=== PATIENT | male | born 1955 | race Hispanic/Latino ===

== ENCOUNTER 2020-03-02 16:25 | Inpatient (IN) | payer BC ==
[2020-03-02 17:13] LABS: ABG HCO3 17.2 mmol/L (20.0-26.0); ABG PCO2 25.9 mm Hg; ABG PH 7.441 pH Units (7.350-7.450); ABG PO2 65.8 mm Hg (80.0-90.0)
[2020-03-02 17:15] LABS: ABG Methemoglobin TNR % (0.0-1.5); ABG Oxygen Saturation TNR % (95.0-99.0)
--- NOTE | 2020-03-02 17:50 | Emergency Department Report ---
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 He is well-known to me and a very pleasant gentleman. He states he has no chronic medical problems. He shows me a list of his current medications that include testosterone but nothing much else of significance. He states that several days ago he started coughing up some clear material which later turned yellow. 2 days ago he had a temperature of 102. Today he became very short of breath. Does not report chest pain or leg pain. 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 He states he is never received any nebulized treatments for bronchospasm. He has no prior history of VTE or coronary artery disease. Later he does state that he has a history of a right bundle branch block. He presents to the emergency department with a pulse oximetry of 78-79 on room air. He is substantially dyspneic but able to speak in short sentences. MD Complaint: shortness of breath, cough -: days(s) Consistency: constant Context: recent URI Associated Symptoms: denies other symptoms, fever, cough Treatments Prior to Arrival: none - Related Data Home Medications Medication Instructions Recorded Confirmed Last Taken Aspirin 325 mg PO QDAY 08/11/18 08/17/18 08/11/18 Cyanocobalamin [Vitamin B-12] 1,000 mcg IM QWEEK 08/11/18 08/17/18 08/16/18 Fenofibrate 160 mg PO DAILY 08/11/18 08/17/18 08/16/18 Metaxalone [Skelaxin] 800 mg PO BID PRN 08/11/18 08/17/18 08/16/18 Multivit-Min/FA/Lycopen/Lutein 1 each PO DAILY 08/11/18 08/17/18 08/16/18 [Centrum Silver Men Tablet] Prasterone (Dhea)/Calcium Carb 1 each PO DAILY 08/11/18 08/17/18 08/16/18 [Dhea Tablet] Testosterone Cypionate 200 mg IM QMONTH 08/11/18 08/11/18 Unknown [Depo-Testosterone] Triamcinolone Aceton 0.1% (Nf) 1 applic TP BID 08/11/18 08/17/18 Unknown [Kenalog (NF)] bisacodyL [Dulcolax tab] 5 mg PO DAILY PRN 08/11/18 08/17/18 08/16/18 Cholecalciferol (Vitamin D3) 1,000 unit PO DAILY 08/14/18 08/17/18 08/17/18 [Vitamin D3] Famotidine [Acid Controller] 20 mg PO DAILY PRN 08/14/18 08/17/18 08/17/18 Krill Oil/[place]-3/Dha/Epa [[place]-3 1 each PO DAILY 08/14/18 08/17/18 08/16/18 Krill Oil Softgel] Magnesium Oxide 500 mg PO DAILY 08/14/18 08/14/18 Unknown Melatonin/Pyridoxine HCl (B6) 1 each PO QHS PRN 08/14/18 08/17/18 08/15/18 [Melatonin Tr 10 mg Tablet] Naproxen Sodium [Aleve TAB] 220 mg PO Q8H PRN 08/14/18 08/17/18 08/11/18 Potassium Gluconate 550 mg PO DAILY 08/14/18 08/17/18 08/17/18 Previous Rx's Medication Instructions Recorded Last Taken Type oxyCODONE /ACETAMINOPHEN [Percocet 2 tab PO Q4H PRN #30 tablet 08/18/18 Unknown Rx 5/325 mg] Allergies Allergy/AdvReac Type Severity Reaction Status Date / Time hydromorphone [From Dilaudid] AdvReac DIZZINESS, Verified 08/11/18 16:12 PT UNCOMFORTABLE WITH FEELING sulfamethoxazole AdvReac ABDOMINAL Verified 08/11/18 16:12 [From Bactrim] CRAMPS trimethoprim [From Bactrim] AdvReac ABDOMINAL Verified 08/11/18 16:12 CRAMPS ED Review of Systems ROS: Stated complaint: SOB Other details as noted in HPI Constitutional: fever. denies: diaphoresis Eyes: denies: eye pain, eye discharge, vision change ENT: denies: ear pain, throat pain Respiratory: cough, shortness of breath. denies: wheezing Cardiovascular: denies: chest pain, palpitations Endocrine: no symptoms reported Gastrointestinal: denies: abdominal pain, nausea, diarrhea Genitourinary: denies: urgency, dysuria Musculoskeletal: denies: back pain, joint swelling, arthralgia Skin: denies: rash, lesions Neurological: denies: headache, weakness, paresthesias Psychiatric: denies: anxiety, depression Hematological/Lymphatic: denies: easy bleeding, easy bruising ED Past Medical Hx - Past Medical History Previous Medical History?: Yes Hx Hypertension: Yes (documented in chart but patient denies diagnosis and is not on meds) Hx Heart Attack/AMI: No Hx Congestive Heart Failure: No Hx Diabetes: No Hx Liver Disease: No Hx Renal Disease: No Hx Arthritis: Yes Hx Seizures: No Hx Asthma: No Hx COPD: No Hx HIV: No - Surgical History Past Surgical History?: Yes Hx Cholecystectomy: Yes (2003) - Social History Smoking Status: Never Smoker Substance Use Type: None - Medications Home Medications: Home Medications Medication Instructions Recorded Confirmed Last Taken Type Aspirin 325 mg PO QDAY 08/11/18 08/17/18 08/11/18 History Cyanocobalamin [Vitamin B-12] 1,000 mcg IM QWEEK 08/11/18 08/17/18 08/16/18 History Fenofibrate 160 mg PO DAILY 08/11/18 08/17/18 08/16/18 History Metaxalone [Skelaxin] 800 mg PO BID PRN 08/11/18 08/17/18 08/16/18 History Multivit-Min/FA/Lycopen/Lutein 1 each PO DAILY 08/11/18 08/17/18 08/16/18 History [Centrum Silver Men Tablet] Prasterone (Dhea)/Calcium Carb 1 each PO DAILY 08/11/18 08/17/18 08/16/18 History [Dhea Tablet] Testosterone Cypionate 200 mg IM QMONTH 08/11/18 08/11/18 Unknown History [Depo-Testosterone] Triamcinolone Aceton 0.1% (Nf) 1 applic TP BID 08/11/18 08/17/18 Unknown History [Kenalog (NF)] bisacodyL [Dulcolax tab] 5 mg PO DAILY PRN 08/11/18 08/17/18 08/16/18 History Cholecalciferol (Vitamin D3) 1,000 unit PO DAILY 08/14/18 08/17/18 08/17/18 History [Vitamin D3] Famotidine [Acid Controller] 20 mg PO DAILY PRN 08/14/18 08/17/18 08/17/18 History Krill Oil/Herbster-3/Dha/Epa [[place]-3 1 each PO DAILY 08/14/18 08/17/18 08/16/18 History Krill Oil Softgel] Magnesium Oxide 500 mg PO DAILY 08/14/18 08/14/18 Unknown History Melatonin/Pyridoxine HCl (B6) 1 each PO QHS PRN 08/14/18 08/17/18 08/15/18 Histo ry [Melatonin Tr 10 mg Tablet] Naproxen Sodium [Aleve TAB] 220 mg PO Q8H PRN 08/14/18 08/17/18 08/11/18 History Potassium Gluconate 550 mg PO DAILY 08/14/18 08/17/18 08/17/18 History oxyCODONE /ACETAMINOPHEN [Percocet 2 tab PO Q4H PRN #30 tablet 08/18/18 Unknown Rx 5/325 mg] ED Physical Exam - General Limitations: No Limitations ED Course Vital Signs 03/02/20 03/02/20 03/02/20 16:42 16:45 17:22 Temperature 98.8 F Pulse Rate 91 H 83 Respiratory 19 24 20 Rate Blood Pressure 153/72 142/78 [Right] O2 Sat by Pulse 78 L 78 L 99 Oximetry 03/02/20 18:11 Temperature Pulse Rate 78 Respiratory 20 Rate Blood Pressure 132/76 [Right] O2 Sat by Pulse 98 Oximetry ED Medical Decision Making - Lab Data Result diagrams: 03/02/20 16:57 03/02/20 16:57 Laboratory Results - last 24 hr 03/02/20 16:53 ABG pH 7.441 ABG pCO2 25.9 ABG pO2 65.8 L ABG HCO3 17.2 L ABG O2 Saturation TNR ABG O2 Content 19.6 ABG Base Excess -5.0 L ABG Hemoglobin TNR ABG Carboxyhemoglobin TNR ABG Methemoglobin TNR Oxyhemoglobin TNR FiO2 0.36 Laboratory Results - last 24 hr 03/02/20 03/02/20 03/02/20 16:53 16:57 16:57 WBC 8.4 RBC 5.38 H Hgb 10.9 L Hct 34.8 L MCV 65 L MCH 20 L MCHC 31 L RDW 20.0 H Plt Count 362 Lymph % (Auto) 9.3 L Finney % (Auto) 4.7 Eos % (Auto) 2.9 Baso % (Auto) 0.3 Lymph # 9.3 H Finney # 0.4 Eos # 0.2 Baso # 0.0 Seg Neutrophils % 82.8 H Seg Neutrophils # 6.9 PT 15.7 H INR 1.23 H APTT 28.7 D-Dimer 1846 H ABG pH 7.441 ABG pCO2 25.9 ABG pO2 65.8 L ABG HCO3 17.2 L ABG O2 Saturation TNR ABG O2 Content 19.6 ABG Base Excess -5.0 L ABG Hemoglobin TNR ABG Carboxyhemoglobin TNR ABG Methemoglobin TNR Oxyhemoglobin TNR FiO2 0.36 Laboratory Results - last 24 hr 03/02/20 03/02/20 03/02/20 16:53 16:57 16:57 WBC 8.4 RBC 5.38 H Hgb 10.9 L Hct 34.8 L MCV 65 L MCH 20 L MCHC 31 L RDW 20.0 H Plt Count 362 Lymph % (Auto) 9.3 L Finney % (Auto) 4.7 Eos % (Auto) 2.9 Baso % (Auto) 0.3 Lymph # 9.3 H Finney # 0.4 Eos # 0.2 Baso # 0.0 Seg Neutrophils % 82.8 H Seg Neutrophils # 6.9 PT 15.7 H INR 1.23 H APTT 28.7 D-Dimer 1846 H ABG pH 7.441 ABG pCO2 25.9 ABG pO2 65.8 L ABG HCO3 17.2 L ABG O2 Saturation TNR ABG O2 Content 19.6 ABG Base Excess -5.0 L ABG Hemoglobin TNR ABG Carboxyhemoglobin TNR ABG Methemoglobin TNR Oxyhemoglobin TNR FiO2 0.36 Laboratory Results - last 24 hr 03/02/20 03/02/20 03/02/20 16:53 16:57 16:57 WBC 8.4 RBC 5.38 H Hgb 10.9 L Hct 34.8 L MCV 65 L MCH 20 L MCHC 31 L RDW 20.0 H Plt Count 362 Lymph % (Auto) 9.3 L Finney % (Auto) 4.7 Eos % (Auto) 2.9 Baso % (Auto) 0.3 Lymph # 9.3 H Finney # 0.4 Eos # 0.2 Baso # 0.0 Seg Neutrophils % 82.8 H Seg Neutrophils # 6.9 PT 15.7 H INR 1.23 H APTT 28.7 D-Dimer 1846 H ABG pH 7.441 ABG pCO2 25.9 ABG pO2 65.8 L ABG HCO3 17.2 L ABG O2 Saturation TNR ABG O2 Content 19.6 ABG Base Excess -5.0 L ABG Hemoglobin TNR ABG Carboxyhemoglobin TNR ABG Methemoglobin TNR Oxyhemoglobin TNR FiO2 0.36 Sodium Potassium Chloride Carbon Dioxide Anion Gap BUN Creatinine Estimated GFR BUN/Creatinine Ratio Glucose Lactic Acid Calcium Troponin T 03/02/20 03/02/20 16:57 16:57 WBC RBC Hgb Hct MCV MCH MCHC RDW Plt Count Lymph % (Auto) Finney % (Auto) Eos % (Auto) Baso % (Auto) Lymph # Finney # Eos # Baso # Seg Neutrophils % Seg Neutrophils # PT INR APTT D-Dimer ABG pH ABG pCO2 ABG pO2 ABG HCO3 ABG O2 Saturation ABG O2 Content ABG Base Excess ABG Hemoglobin ABG Carboxyhemoglobin ABG Methemoglobin Oxyhemoglobin FiO2 Sodium 135 L Potassium 4.0 Chloride 98.7 Carbon Dioxide 17 L Anion Gap 23 BUN 14 Creatinine 1.1 Estimated GFR > 60 BUN/Creatinine Ratio 13 Glucose 120 H Lactic Acid 1.20 Calcium 9.1 Troponin T < 0.010 Laboratory Results - last 24 hr 03/02/20 03/02/20 03/02/20 16:53 16:57 16:57 WBC 8.4 RBC 5.38 H Hgb 10.9 L Hct 34.8 L MCV 65 L MCH 20 L MCHC 31 L RDW 20.0 H Plt Count 362 Lymph % (Auto) 9.3 L Finney % (Auto) 4.7 Eos % (Auto) 2.9 Baso % (Auto) 0.3 Lymph # 9.3 H Finney # 0.4 Eos # 0.2 Baso # 0.0 Seg Neutrophils % 82.8 H Seg Neutrophils # 6.9 PT 15.7 H INR 1.23 H APTT 28.7 D-Dimer 1846 H ABG pH 7.441 ABG pCO2 25.9 ABG pO2 65.8 L ABG HCO3 17.2 L ABG O2 Saturation TNR ABG O2 Content 19.6 ABG Base Excess -5.0 L ABG Hemoglobin TNR ABG Carboxyhemoglobin TNR ABG Methemoglobin TNR Oxyhemoglobin TNR FiO2 0.36 Sodium Potassium Chloride Carbon Dioxide Anion Gap BUN Creatinine Estimated GFR BUN/Creatinine Ratio Glucose Lactic Acid Calcium Troponin T 03/02/20 03/02/20 16:57 16:57 WBC RBC Hgb Hct MCV MCH MCHC RDW Plt Count Lymph % (Auto) Finney % (Auto) Eos % (Auto) Baso % (Auto) Lymph # Finney # Eos # Baso # Seg Neutrophils % Seg Neutrophils # PT INR APTT D-Dimer ABG pH ABG pCO2 ABG pO2 ABG HCO3 ABG O2 Saturation ABG O2 Content ABG Base Excess ABG Hemoglobin ABG Carboxyhemoglobin ABG Methemoglobin Oxyhemoglobin FiO2 Sodium 135 L Potassium 4.0 Chloride 98.7 Carbon Dioxide 17 L Anion Gap 23 BUN 14 Creatinine 1.1 Estimated GFR > 60 BUN/Creatinine Ratio 13 Glucose 120 H Lactic Acid 1.20 Calcium 9.1 Troponin T < 0.010 - Radiology Data Radiology results: report reviewed, image reviewed interpreted by me: Chest x-ray shows bilateral infiltrates. CT of the chest seems consistent with diffuse bilateral ground glass/parenchymal infiltrates. They do appear typical for COVID infection to me. I did not see any evidence of pulmonary embolism. Radiologist interpretation is pending. Critical care attestation.: If time is entered above; I have spent that time in minutes in the direct care of this critically ill patient, excluding procedure time. ED Disposition Clinical Impression: Bilateral pneumonia Qualifiers: Pneumonia type: due to unspecified organism Lung location: unspecified part of lung Qualified Code(s): J18.9 - Pneumonia, unspecified organism Respiratory failure with hypoxia Qualifiers: Chronicity: acute Qualified Code(s): J96.01 - Acute respiratory failure with hypoxia Disposition: OP ADMIT IP TO THIS HOSP Is pt being admited?: Yes Does the pt Need Aspirin: Yes Condition: Stable Instructions: Bacterial Pneumonia (ED) Referrals: PRIMARY CARE, [Primary Care Provider] - 3-5 Days Time of Disposition: 19:26
[2020-03-02 17:54] LABS: INR 1.23 (0.87-1.13); Partial Thromboplastin Time 28.7 Sec. (24.2-36.6)
[2020-03-02 17:55] LABS: Hematocrit 34.8 % (35.5-45.6); Hemoglobin 10.9 gm/dl (11.8-15.2); Mean Corpuscular HGB Conc 31 % (32-34); Mean Corpuscular Volume 65 fl (84-94); Red Blood Count 5.38 M/mm3 (3.65-5.03)
[2020-03-02 17:56] LABS: Basophils % (Auto) 0.3 % (0.0-1.8); Eosinophils # (Auto) 0.2 K/mm3 (0.0-0.4); Eosinophils % (Auto) 2.9 % (0.0-4.3); Lymphocytes # (Auto) 9.3 K/mm3 (1.2-5.4); Lymphocytes % (Auto) 9.3 % (13.4-35.0); Mean Platelet Volume 8.5 fl (6-12); Monocytes # (Auto) 0.4 K/mm3 (0.0-0.8); Monocytes % (Auto) 4.7 % (0.0-7.3); Platelet Count 362 K/mm3 (140-440)
[2020-03-02 18:15] LABS: BUN/Creatinine Ratio 13; Blood Urea Nitrogen 14 mg/dL (9-20)
[2020-03-02 18:16] LABS: Calcium 9.1 mg/dL (8.4-10.2)
[2020-03-02] MEDS ORDERED: CEFEPIME/NS 2 GM/100 ML 2 GM/100 ML BAG IV ONE (18:26)
[2020-03-02 18:27] LABS: Bilirubin,Direct < 0.2 mg/dL (0-0.2)
[2020-03-02 18:28] LABS: Alanine Aminotransferase 17 units/L (7-56)
[2020-03-02 18:35] LABS: Creatine Kinase MB 2.8 ng/mL (0.0-4.0)
[2020-03-02 18:41] LABS: Creatine Kinase MB 2.8 ng/mL (0.0-4.0)
[2020-03-02 19:06] LABS: Albumin 3.5 g/dL (3.9-5)
--- NOTE | 2020-03-02 19:22 | Cat Scan Report ---
CT angio chest INDICATION / CLINICAL INFORMATION: MAIN: Hypoxia [id number] 100ml. TECHNIQUE: Precontrast bolus timing images were obtained followed by postcontrast axial and reformatted images. 3-plane MIP reconstructions were performed at an independent workstation by the technologist. All CT scans at this location are performed using CT dose reduction for ALARA by means of automated exposure control. COMPARISON: None available. FINDINGS: Enhancement of the pulmonary arteries is normal. No evidence of pulmonary embolus. There are bilateral multifocal groundglass opacities with basilar predilection of disease. No mediastinal adenopathy. Thoracic aorta is normal. No pericardial effusion. A small hiatal hernia is identified. Limited upper abdominal images and skeletal structures are negat uyen. IMPRESSION: 1. No evidence of pulmonary embolus. 2. Multifocal bilateral groundglass opacities. 3. Small hiatal hernia. Signer Name: Neto Ray MD Signed: 03/02/2020 7:18 PM Workstation Name: [id number]
[2020-03-02 19:28] LABS: Hemolysis Index 0
[2020-03-02] MEDS ORDERED: AZITHROMYCIN 500 MG in SODIUM CHLORIDE 0.9% 250ML 250 ML IV ONE (19:30)
[2020-03-02 21:05] LABS: C-Reactive Protein 8.4 mg/dL (0.00-1.30)
--- NOTE | 2020-03-02 22:36 | History and Physical Report ---
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 He is well-known to me and a very pleasant gentleman. He states he has no chronic medical problems. He shows me a list of his current medications that include testosterone but nothing much else of significance. He states that several days ago he started coughing up some clear material which later turned yellow. 2 days ago he had a temperature of 102. Today he became very short of breath. Does not report chest pain or leg pain. 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 He states he is never received any nebulized treatments for bronchospasm. He has no prior history of VTE or coronary artery disease. Later he does state that he has a history of a right bundle branch block. He presents to the emergency department with a pulse oximetry of 78-79 on room air. He is substantially dyspneic but able to speak in short sentences Past Medical History Previous Medical History?: Yes Hx Hypertension: Yes (documented in chart but patient denies diagnosis and is not on meds) Surgical History Past Surgical History?: Yes Hx Cholecystectomy: Yes (2003) Social History Smoking Status: Never Smoker Substance Use Type: None - Medications Home Medications: Home Medications Medication Instructions Recorded Confirmed Last Taken Type Aspirin 325 mg PO QDAY 08/11/18 08/17/18 08/11/18 History Cyanocobalamin [Vitamin B-12] 1,000 mcg IM QWEEK 08/11/18 08/17/18 08/16/18 History Fenofibrate 160 mg PO DAILY 08/11/18 08/17/18 08/16/18 History Metaxalone [Skelaxin] 800 mg PO BID PRN 08/11/18 08/17/18 08/16/18 History Multivit-Min/FA/Lycopen/Lutein 1 each PO DAILY 08/11/18 08/17/18 08/16/18 History [Centrum Silver Men Tablet] Prasterone (Dhea)/Calcium Carb 1 each PO DAILY 08/11/18 08/17/18 08/16/18 History [Dhea Tablet] Testosterone Cypionate 200 mg IM QMONTH 08/11/18 08/11/18 Unknown History [Depo-Testosterone] Triamcinolone Aceton 0.1% (Nf) 1 applic TP BID 08/11/18 08/17/18 Unknown History [Kenalog (NF)] bisacodyL [Dulcolax tab] 5 mg PO DAILY PRN 08/11/18 08/17/18 08/16/18 History Cholecalciferol (Vitamin D3) 1,000 unit PO DAILY 08/14/18 08/17/18 08/17/18 His tory [Vitamin D3] Famotidine [Acid Controller] 20 mg PO DAILY PRN 08/14/18 08/17/18 08/17/18 History Krill Oil/Elizabeth-3/Dha/Epa [Elizabeth-3 1 each PO DAILY 08/14/18 08/17/18 08/16/18 History Krill Oil Softgel] Magnesium Oxide 500 mg PO DAILY 08/14/18 08/14/18 Unknown History Melatonin/Pyridoxine HCl (B6) 1 each PO QHS PRN 08/14/18 08/17/18 08/15/18 History [Melatonin Tr 10 mg Tablet] Naproxen Sodium [Aleve TAB] 220 mg PO Q8H PRN 08/14/18 08/17/18 08/11/18 History Potassium Gluconate 550 mg PO DAILY 08/14/18 08/17/18 08/17/18 History oxyCODONE /ACETAMINOPHEN [Percocet 2 tab PO Q4H PRN #30 tablet 08/18/18 Unknown Rx 5/325 mg] Review of Systems ROS: Stated complaint: SOB Other details as noted in HPI Constitutional: fever. denies: diaphoresis Eyes: denies: eye pain, eye discharge, vision change ENT: denies: ear pain, throat pain Respiratory: cough, shortness of breath. denies: wheezing Cardiovascular: denies: chest pain, palpitations Endocrine: no symptoms reported Gastrointestinal: denies: abdominal pain, nausea, diarrhea Genitourinary: denies: urgency, dysuria Musculoskeletal: denies: back pain, joint swelling, arthralgia Skin: denies: rash, lesions Neurological: denies: headache, weakness, paresthesias Psychiatric: denies: anxiety, depression Hematological/Lymphatic: denies: easy bleeding, easy bruising Medications and Allergies Allergies Allergy/AdvReac Type Severity Reaction Status Date / Time hydromorphone [From Dilaudid] AdvReac DIZZINESS, Verified 08/11/18 16:12 PT UNCOMFORTABLE WITH FEELING sulfamethoxazole AdvReac ABDOMINAL Verified 08/11/18 16:12 [From Bactrim] CRAMPS trimethoprim [From Bactrim] AdvReac ABDOMINAL Verified 08/11/18 16:12 CRAMPS Home Medications Medication Instructions Recorded Confirmed Last Taken Type Aspirin 325 mg PO QDAY 08/11/18 03/03/20 08/11/18 History Cyanocobalamin [Vitamin B-12] 1,000 mcg IM QWEEK 08/11/18 03/03/20 08/16/18 History Fenofibrate 160 mg PO DAILY 08/11/18 03/03/20 08/16/18 History Metaxalone [Skelaxin] 800 mg PO BID PRN 08/11/18 03/03/20 08/16/18 History Multivit-Min/FA/Lycopen/Lutein 1 each PO DAILY 08/11/18 03/03/20 08/16/18 History [Centrum Silver Men Tablet] Prasterone (Dhea)/Calcium Carb 1 each PO DAILY 08/11/18 03/03/20 08/16/18 History [Dhea Tablet] Testosterone Cypionate 200 mg IM QMONTH 08/11/18 03/03/20 Unknown History [Depo-Testosterone] Triamcinolone Aceton 0.1% (Nf) 1 applic TP BID 08/11/18 03/03/20 Unknown History [Kenalog (NF)] bisacodyL [Dulcolax tab] 5 mg PO DAILY PRN 08/11/18 03/03/20 08/16/18 History Cholecalciferol (Vitamin D3) 1,000 unit PO DAILY 08/14/18 03/03/20 08/17/18 History [Vitamin D3] Famotidine [Acid Controller] 20 mg PO DAILY PRN 08/14/18 03/03/20 08/17/18 Hist ory Krill Oil/Elizabeth-3/Dha/Epa [Elizabeth-3 1 each PO DAILY 08/14/18 03/03/20 08/16/18 History Krill Oil Softgel] Magnesium Oxide 500 mg PO DAILY 08/14/18 03/03/20 Unknown History Melatonin/Pyridoxine HCl (B6) 1 each PO QHS PRN 08/14/18 03/03/20 08/15/18 History [Melatonin Tr 10 mg Tablet] Naproxen Sodium [Aleve TAB] 220 mg PO Q8H PRN 08/14/18 03/03/20 08/11/18 History Potassium Gluconate 550 mg PO DAILY 08/14/18 03/03/20 08/17/18 History oxyCODONE /ACETAMINOPHEN [Percocet 2 tab PO Q4H PRN #30 tablet 08/18/18 03/03/20 Unknown Rx 5/325 mg] Exam - Constitutional Vitals: Temp Pulse Resp BP Pulse Ox 98.5 F 81 20 147/78 94 03/02/20 21:02 03/02/20 21:02 03/02/20 21:02 03/02/20 21:02 03/02/20 21:02 General appearance: Present: no acute distress, well-nourished - EENT Eyes: Present: PERRL ENT: hearing intact, clear oral mucosa - Neck Neck: Present: supple, normal ROM - Respiratory Respiratory effort: normal Respiratory: bilateral: CTA - Cardiovascular Heart Sounds: Present: S1 & S2. Absent: rub, click - Extremities Extremities: pulses symmetrical, No edema Peripheral Pulses: within normal limits - Abdominal General gastrointestinal: Present: soft, non-tender, non-distended, normal bowel sounds Male genitourinary: Present: normal - Integumentary Integumentary: Present: clear, warm, dry - Musculoskeletal Musculoskeletal: gait normal, strength equal bilaterally - Psychiatric Psychiatric: appropriate mood/affect, intact judgment & insight - Neurologic Neurologic: CNII-XII intact, moves all extremities Results - Labs CBC & Chem 7: 03/03/20 05:18 03/03/20 05:18 Labs: Laboratory Last Values WBC 8.4 K/mm3 (4.5-11.0) 03/02/20 16:57 RBC 5.38 M/mm3 (3.65-5.03) H 03/02/20 16:57 Hgb 10.9 gm/dl (11.8-15.2) L 03/02/20 16:57 Hct 34.8 % (35.5-45.6) L 03/02/20 16:57 MCV 65 fl (84-94) L 03/02/20 16:57 MCH 20 pg (28-32) L 03/02/20 16:57 MCHC 31 % (32-34) L 03/02/20 16:57 RDW 20.0 % (13.2-15.2) H 03/02/20 16:57 Plt Count 362 K/mm3 (140-440) 03/02/20 16:57 Lymph % (Auto) 9.3 % (13.4-35.0) L 03/02/20 16:57 Lyman % (Auto) 4.7 % (0.0-7.3) 03/02/20 16:57 Eos % (Auto) 2.9 % (0.0-4.3) 03/02/20 16:57 Baso % (Auto) 0.3 % (0.0-1.8) 03/02/20 16:57 Lymph # 9.3 K/mm3 (1.2-5.4) H 03/02/20 16:57 Lyman # 0.4 K/mm3 (0.0-0.8) 03/02/20 16:57 Eos # 0.2 K/mm3 (0.0-0.4) 03/02/20 16:57 Baso # 0.0 K/mm3 (0.0-0.1) 03/02/20 16:57 Seg Neutrophils % 82.8 % (40.0-70.0) H 03/02/20 16:57 Seg Neutrophils # 6.9 K/mm3 (1.8-7.7) 03/02/20 16:57 PT 15.7 Sec. (12.2-14.9) H 03/02/20 16:57 INR 1.23 (0.87-1.13) H 03/02/20 16:57 APTT 28.7 Sec. (24.2-36.6) 03/02/20 16:57 D-Dimer 1805.97 ng/mlDDU (0-234) H 03/02/20 20:35 ABG pH 7.441 pH Units (7.350-7.450) 03/02/20 16:53 ABG pCO2 25.9 mm Hg 03/02/20 16:53 ABG pO2 65.8 mm Hg (80.0-90.0) L 03/02/20 16:53 ABG HCO3 17.2 mmol/L (20.0-26.0) L 03/02/20 16:53 ABG O2 Saturation TNR 03/02/20 16:53 ABG O2 Content 19.6 (0.0-44) 03/02/20 16:53 ABG Base Excess -5.0 mmol/L (-2.0-3.0) L 03/02/20 16:53 ABG Hemoglobin TNR 03/02/20 16:53 ABG Carboxyhemoglobin TNR 03/02/20 16:53 ABG Methemoglobin TNR 03/02/20 16:53 Oxyhemoglobin TNR 03/02/20 16:53 FiO2 0.36 % 03/02/20 16:53 Sodium 135 mmol/L (137-145) L 03/02/20 16:57 Potassium 4.0 mmol/L (3.6-5.0) 03/02/20 16:57 Chloride 98.7 mmol/L (98-107) 03/02/20 16:57 Carbon Dioxide 17 mmol/L (22-30) L 03/02/20 16:57 Anion Gap 23 mmol/L 03/02/20 16:57 BUN 14 mg/dL (9-20) 03/02/20 16:57 Creatinine 1.1 mg/dL (0.8-1.5) 03/02/20 16:57 Estimated GFR > 60 ml/min 03/02/20 16:57 BUN/Creatinine Ratio 13 % 03/02/20 16:57 Glucose 109 mg/dL (75-100) H 03/02/20 20:35 Lactic Acid 1.20 mmol/L (0.7-2.0) 03/02/20 16:57 Calcium 9.1 mg/dL (8.4-10.2) 03/02/20 16:57 Magnesium 1.90 mg/dL (1.7-2.3) 03/02/20 16:57 Transferrin 267 mg/dl (180-329) 03/02/20 16:57 Ferritin 135.5 ng/mL (13.0-400.0) 03/02/20 20:35 Total Bilirubin 0.40 mg/dL (0.1-1.2) 03/02/20 16:57 Direct Bilirubin < 0.2 mg/dL (0-0.2) 03/02/20 16:57 Indirect Bilirubin 0.2 mg/dL 03/02/20 16:57 AST 23 units/L (5-40) 03/02/20 16:57 ALT 17 units/L (7-56) 03/02/20 16:57 Alkaline Phosphatase 67 units/L (35-129) 03/02/20 16:57 Lactate Dehydrogenase 423 units/L (91-180) H 03/02/20 20:35 Total Creatine Kinase 90 units/L (55-170) 03/02/20 16:57 Total Creatine Kinase 93 units/L (55-170) 03/02/20 16:57 CK-MB (CK-2) 2.8 ng/mL (0.0-4.0) 03/02/20 16:57 CK-MB (CK-2) 2.8 ng/mL (0.0-4.0) 03/02/20 16:57 CK-MB (CK-2) Rel Index 3.0 (0-4) 03/02/20 16:57 CK-MB (CK-2) Rel Index 3.1 (0-4) 03/02/20 16:57 Troponin T < 0.010 ng/mL (0.00-0.029) 03/02/20 19:30 C-Reactive Protein 8.40 mg/dL (0.00-1.30) H 03/02/20 20:35 NT-Pro-B Natriuret Pep 193.4 pg/mL (0-900) 03/02/20 16:57 Total Protein 7.4 g/dL (6.3-8.2) 03/02/20 16:57 Albumin 3.5 g/dL (3.9-5) L 03/02/20 16:57 Albumin/Globulin Ratio 0.9 % 03/02/20 16:57 Short CBC 03/02/20 03/03/20 Range/Units 16:57 05:18 WBC 8.4 5.8 (4.5-11.0) K/mm3 Hgb 10.9 L 11.0 L (11.8-15.2) gm/dl Hct 34.8 L 34.0 L (35.5-45.6) % Plt Count 362 353 (140-440) K/mm3 BMP 03/02/20 03/02/20 03/03/20 16:57 20:35 05:18 Sodium 135 L 136 L Potassium 4.0 4.3 Chloride 98.7 99.9 Carbon Dioxide 17 L 21 L BUN 14 12 Creatinine 1.1 1.0 Glucose 120 H 109 H 97 Calcium 9.1 9.2 Cardiac Enzymes 03/02/20 03/02/20 03/02/20 Range/Units 16:57 16:57 16:57 Total Creatine Kinase 90 93 (55-170) units/L CK-MB (CK-2) 2.8 2.8 (0.0-4.0) ng/mL Troponin T < 0.010 (0.00-0.029) ng/mL 03/02/20 Range/Units 19:30 Total Creatine Kinase (55-170) units/L CK-MB (CK-2) (0.0-4.0) ng/mL Troponin T < 0.010 (0.00-0.029) ng/mL Liver Function 03/02/20 03/03/20 Range/Units 16:57 05:18 Total Bilirubin 0.40 0.40 (0.1-1.2) mg/dL Direct Bilirubin < 0.2 (0-0.2) mg/dL AST 23 23 (5-40) units/L ALT 17 15 (7-56) units/L Alkaline Phosphatase 67 64 (35-129) units/L Albumin 3.5 L 3.7 L (3.9-5) g/dL Microbiology: Microbiology 03/02/20 16:57 Peripheral/Venous Blood Culture - Preliminary Culture in Progress 03/02/20 16:57 Peripheral/Venous Blood Culture - Preliminary Culture in Progress - Imaging and Cardiology Chest x-ray: report reviewed (Bilateral pneumonia) CT scan - chest: report reviewed Imaging and Cardiology: CT CVhest IMPRESSION: 1. No evidence of pulmonary embolus. 2. Multifocal bilateral groundglass opacities. 3. Small hiatal hernia Hpoe/IV: IV Catheter Type [Right Peripheral IV Forearm] Assessment and Plan Advance Directives: Yes (Full code) VTE prophylaxis?: Chemical Plan of care discussed with patient/family: Yes - Patient Problems (1) Bilateral pneumonia Current Visit: Yes Status: Acute Qualifiers: Pneumonia type: due to unspecified organism Lung location: unspecified part of lung Qualified Code(s): J18.9 - Pneumonia, unspecified organism Plan to address problem: ossible Foley virus IV Zithromax Supplemental O2 Zinc po ID consult (2) Respiratory failure with hypoxia Current Visit: Yes Status: Acute Qualifiers: Chronicity: acute Qualified Code(s): J96.01 - Acute respiratory failure with hypoxia Plan to address problem: Resp support REsp protocol (3) Suspected 2019 novel coronavirus infection Current Visit: Yes Status: Acute Plan to address problem: Covid 19 protocol (4) D-dimer, elevated Current Visit: Yes Status: Acute Plan to address problem: On Lovenox 130 mg sq \bid (5) DVT prophylaxis Current Visit: Yes Status: Acute Plan to address problem: On Lopvenox and GI prophylaxis
[2020-03-02] MEDS ORDERED: METOCLOPRAMIDE 10 MG/2 ML INJ IV PRN (22:38)
[2020-03-02] MEDS ORDERED: ONDANSETRON 4 MG/2 ML INJ IV PRN (22:38)
[2020-03-02] MEDS ORDERED: oxyCODONE /ACETAMINOPHEN 5-325MG TAB PO PRN (22:38)
[2020-03-02] MEDS ORDERED: HYDROmorphone 1 MG/1 ML INJ IV PRN (22:38)
[2020-03-02] MEDS ORDERED: ENOXAPARIN 40 MG/0.4 ML INJ SUB-Q SCH (23:00)
[2020-03-03] MEDS: ZINC SULFATE 220 MG CAP PO SCH ×2 (00:17→09:05)
[2020-03-03] MEDS: ENOXAPARIN 150 MG/1 ML INJ SUB-Q SCH ×3 (00:17→23:40)
--- NOTE | 2020-03-03 00:45 | XRay Report ---
CHEST 1 VIEW 1728 INDICATION / CLINICAL INFORMATION: Dyspnea. COMPARISON: None available. FINDINGS: SUPPORT DEVICES: None HEART / MEDIASTINUM: No significant abnormality. LUNGS / PLEURA: Patchy moderate bilateral pulmonary infiltrates are seen, likely interstitial based o n the pattern. There may be early consolidation in the left base. No pleural effusions are seen. No p neumothorax. ADDITIONAL FINDINGS: No significant additional findings. IMPRESSION: Patchy bilateral probably interstitial infiltrates of concern for acute pneumonitis which could include viral pneumonitis. See report of subsequent CTA. Signer Name: Richard Pickering MD Signed: 03/03/2020 12:41 AM Workstation Name: [id number]
[2020-03-03 05:47] LABS: Basophils % (Auto) 0.3 % (0.0-1.8); Eosinophils # (Auto) 0.3 K/mm3 (0.0-0.4); Eosinophils % (Auto) 4.6 % (0.0-4.3); Lymphocytes # (Auto) 0.8 K/mm3 (1.2-5.4); Mean Corpuscular HGB Conc 32 % (32-34); Monocytes # (Auto) 0.4 K/mm3 (0.0-0.8); Monocytes % (Auto) 6.2 % (0.0-7.3); Platelet Count 353 K/mm3 (140-440); Red Blood Count 5.29 M/mm3 (3.65-5.03); Red Cell Distribution Width 19.7 % (13.2-15.2)
[2020-03-03 05:57] LABS: Mean Corpuscular Volume 64 fl (84-94)
[2020-03-03 06:04] LABS: Alanine Aminotransferase 15 units/L (7-56); Albumin 3.7 g/dL (3.9-5); BUN/Creatinine Ratio 12; Blood Urea Nitrogen 12 mg/dL (9-20); Calcium 9.2 mg/dL (8.4-10.2); Hemolysis Index 1
[2020-03-03] MEDS: ACETAMINOPHEN 325 MG TAB PO PRN ×2 (06:27→13:32)
[2020-03-03] MEDS: FAMOTIDINE 20 MG TAB PO SCH ×2 (09:05→21:08)
[2020-03-03] MEDS: MAGNESIUM OXIDE 400 MG TAB PO SCH (09:05)
[2020-03-03] MEDS: MULTIVITAMINS,THER W-MINERALS TAB PO SCH (09:05)
[2020-03-03] MEDS: CHOLECALCIFEROL (VIT D3) 5,000 UNIT TAB PO SCH (09:10)
[2020-03-03 09:46] LABS: Bacteria,Urine 1+ /HPF (Negative); Bilirubin,Urine NEG (Negative); Blood,Urine NEG (Negative); Color,Urine Yellow (Yellow); Mucus,Urine 2+ /HPF; Protein,Urine <15 mg/dL mg/dL (Negative)
[2020-03-03] MEDS ORDERED: LYCOPEN PO SCH (10:00)
[2020-03-03] MEDS ORDERED: CHOLECALCIFEROL 5000 UNIT PO SCH (10:00)
[2020-03-03] MEDS ORDERED: [UNRECOGNIZED DRUG - OTHER] PO SCH (10:00)
[2020-03-03] MEDS ORDERED: MULTIVIT MIN PO SCH (10:00)
[2020-03-03] MEDS ORDERED: MAGNESIUM OXIDE 500 MG PO SCH (10:00)
[2020-03-03] MEDS ORDERED: LUTEIN PO SCH (10:00)
[2020-03-03] MEDS ORDERED: AZITHROMYCIN 500 MG in SODIUM CHLORIDE 0.9% 250ML 250 ML IV SCH (10:00)
--- NOTE | 2020-03-03 13:03 | Consultation ---
History of Present Illness - Reason for Consult Consult date: 03/03/20 - History of Present Illness 64 yo M no PMHx presents to the hospital complaining of cough productive of clear-yellow sputum as well as fevers measured by him to 102. 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 He notes worsening SOB which began on the day of admission. Denies any other complaints at the present time. Febrile to 100.9 here and currently receiving ceftriaxone and azithromycin. Normal white count. Blood cultures are NGTD. Imaging personally reviewed: CT chest: multifocal GGO Review of Systems: Bold if positive, otherwise negative General: fevers, chills, rigors HEENT: visual disturbance, diplopia, eye pain Respiratory: cough, sputum, hemoptysis, shortness of breath Cardiovascular: chest pain, syncope Gastrointestinal: nausea, vomiting, diarrhea, abdominal pain Genitourinary: dysuria, hematuria, flank pain Musculoskeletal: neck pain, back pain, joint pain, edema Neurologic: headaches, seizures Hematologic: easy bruising or bleeding Endocrine: night sweats, acute weight loss Skin: rash, jaundice, redness Psychiatric: suicidal, homicidal ideation Medications and Allergies Allergies Allergy/AdvReac Type Severity Reaction Status Date / Time hydromorphone [From Dilaudid] AdvReac DIZZINESS, Verified 08/11/18 16:12 PT UNCOMFORTABLE WITH FEELING sulfamethoxazole AdvReac ABDOMINAL Verified 08/11/18 16:12 [From Bactrim] CRAMPS trimethoprim [From Bactrim] AdvReac ABDOMINAL Verified 08/11/18 16:12 CRAMPS Home Medications Medication Instructions Recorded Confirmed Last Taken Type Aspirin 325 mg PO QDAY 08/11/18 03/03/20 08/11/18 History Cyanocobalamin [Vitamin B-12] 1,000 mcg IM QWEEK 08/11/18 03/03/20 08/16/18 History Fenofibrate 160 mg PO DAILY 08/11/18 03/03/20 08/16/18 History Metaxalone [Skelaxin] 800 mg PO BID PRN 08/11/18 03/03/20 08/16/18 History Multivit-Min/FA/Lycopen/Lutein 1 each PO DAILY 08/11/18 03/03/20 08/16/18 History [Centrum Silver Men Tablet] Prasterone (Dhea)/Calcium Carb 1 each PO DAILY 08/11/18 03/03/20 08/16/18 History [Dhea Tablet] Testosterone Cypionate 200 mg IM QMONTH 08/11/18 03/03/20 Unknown History [Depo-Testosterone] Triamcinolone Aceton 0.1% (Nf) 1 applic TP BID 08/11/18 03/03/20 Unknown History [Kenalog (NF)] bisacodyL [Dulcolax tab] 5 mg PO DAILY PRN 08/11/18 03/03/20 08/16/18 History Cholecalciferol (Vitamin D3) 1,000 unit PO DAILY 08/14/18 03/03/20 08/17/18 History [Vitamin D3] Famotidine [Acid Controller] 20 mg PO DAILY PRN 08/14/18 03/03/20 08/17/18 History Krill Oil/Melfa-3/Dha/Epa [Melfa-3 1 each PO DAILY 08/14/18 03/03/20 08/16/18 History Krill Oil Softgel] Magnesium Oxide 500 mg PO DAILY 08/14/18 03/03/20 Unknown History Melatonin/Pyridoxine HCl (B6) 1 each PO QHS PRN 08/14/18 03/03/20 08/15/18 History [Melatonin Tr 10 mg Tablet] Naproxen Sodium [Aleve TAB] 220 mg PO Q8H PRN 08/14/18 03/03/20 08/11/18 History Potassium Gluconate 550 mg PO DAILY 08/14/18 03/03/20 08/17/18 History oxyCODONE /ACETAMINOPHEN [Percocet 2 tab PO Q4H PRN #30 tablet 08/18/18 03/03/20 Unknown Rx 5/325 mg] Active Meds: Active Medications Acetaminophen (Tylenol) 650 mg PO Q4H PRN PRN Reason: Pain MILD(1-3)/Fever >100.5/BRUNO Last Admin: 03/03/20 06:27 Dose: 650 mg Documented by: Azithromycin (Zithromax) 500 mg PO QDAY [facility] Stop: 03/07/20 10:01 Cholecalciferol (Vitamin D3) 5,000 unit PO DAILY [facility] Last Admin: 03/03/20 09:10 Dose: 5,000 unit Documented by: Enoxaparin Sodium (Enoxaparin) 130 mg SUB-Q Q12H [facility] Last Admin: 03/03/20 10:05 Dose: 130 mg Documented by: Famotidine (Pepcid) 20 mg PO BID [facility] Last Admin: 03/03/20 09:05 Dose: 20 mg Documented by: Hydromorphone HCl (Dilaudid) 0.5 mg IV Q3H PRN PRN Reason: Pain , Severe (7-10) Ceftriaxone Sodium (Rocephin/Ns 2 Gm/100 Ml) 2 gm in 100 mls @ 200 mls/hr IV Q24HR [facility] Magnesium Oxide (Mag-Ox) 400 mg PO QDAY [facility] Last Admin: 03/03/20 09:05 Dose: 400 mg Documented by: Metoclopramide HCl (Reglan) 10 mg IV Q6H PRN PRN Reason: Nausea And Vomiting Multivitamins/Minerals (Theragran-M Tab) 1 each PO QDAY [facility] Last Admin: 03/03/20 09:05 Dose: 1 each Documented by: Ondansetron HCl (Zofran) 4 mg IV Q8H PRN PRN Reason: Nausea And Vomiting Oxycodone/Acetaminophen (Percocet 5/325) 1 tab PO Q6H PRN PRN Reason: Pain, Moderate (4-6) Sodium Chloride (Sodium Chloride Flush Syringe 10 Ml) 10 ml IV BID [facility] Last Admin: 03/03/20 09:06 Dose: 10 ml Documented by: Sodium Chloride (Sodium Chloride Flush Syringe 10 Ml) 10 ml IV PRN PRN PRN Reason: LINE FLUSH Zinc Sulfate (Zinc Sulfate) 220 mg PO DAILY [facility] Physical Examination - Physical Exam Narrative exam: Physical exam: Reviewed in chart but deferred due to PPE conservation strategy. - Constitutional Vitals: Vital Signs Temp Pulse Resp BP Pulse Ox 100.9 F H 83 19 118/48 92 03/03/20 04:44 03/03/20 04:44 03/03/20 06:27 03/03/20 04:44 03/03/20 04:44 Temperature -Last 24 Hours Temperature 100.9 F Temperature 98.5 F Temperature 98.5 F Temperature 98.6 F Temperature 98.8 F Results - Labs CBC & Chem 7: 03/03/20 05:18 03/03/20 05:18 Labs: Abnormal lab results 03/02/20 03/02/20 03/02/20 Range/Units 16:53 16:57 16:57 RBC 5.38 H (3.65-5.03) M/mm3 Hgb 10.9 L (11.8-15.2) gm/dl Hct 34.8 L (35.5-45.6) % MCV 65 L (84-94) fl MCH 20 L (28-32) pg MCHC 31 L (32-34) % RDW 20.0 H (13.2-15.2) % Lymph % (Auto) 9.3 L (13.4-35.0) % Eos % (Auto) (0.0-4.3) % Lymph # 9.3 H (1.2-5.4) K/mm3 Seg Neutrophils % 82.8 H (40.0-70.0) % PT 15.7 H (12.2-14.9) Sec. INR 1.23 H (0.87-1.13) D-Dimer 1846 H (0-234) ng/mlDDU ABG pO2 65.8 L (80.0-90.0) mm Hg ABG HCO3 17.2 L (20.0-26.0) mmol/L ABG Base Excess -5.0 L (-2.0-3.0) mmol/L Sodium (137-145) mmol/L Carbon Dioxide (22-30) mmol/L Glucose (75-100) mg/dL Hemoglobin A1c (4-6) % Lactate Dehydrogenase (91-180) units/L C-Reactive Protein (0.00-1.30) mg/dL Albumin (3.9-5) g/dL 03/02/20 03/02/20 03/02/20 Range/Units 16:57 16:57 20:35 RBC (3.65-5.03) M/mm3 Hgb (11.8-15.2) gm/dl Hct (35.5-45.6) % MCV (84-94) fl MCH (28-32) pg MCHC (32-34) % RDW (13.2-15.2) % Lymph % (Auto) (13.4-35.0) % Eos % (Auto) (0.0-4.3) % Lymph # (1.2-5.4) K/mm3 Seg Neutrophils % (40.0-70.0) % PT (12.2-14.9) Sec. INR (0.87-1.13) D-Dimer 1805.97 H (0-234) ng/mlDDU ABG pO2 (80.0-90.0) mm Hg ABG HCO3 (20.0-26.0) mmol/L ABG Base Excess (-2.0-3.0) mmol/L Sodium 135 L (137-145) mmol/L Carbon Dioxide 17 L (22-30) mmol/L Glucose 120 H (75-100) mg/dL Hemoglobin A1c (4-6) % Lactate Dehydrogenase 411 H (91-180) units/L C-Reactive Protein 9.00 H (0.00-1.30) mg/dL Albumin 3.5 L (3.9-5) g/dL 03/02/20 03/03/20 03/03/20 Range/Units 20:35 05:18 05:18 RBC 5.29 H (3.65-5.03) M/mm3 Hgb 11.0 L (11.8-15.2) gm/dl Hct 34.0 L (35.5-45.6) % MCV 64 L (84-94) fl MCH 21 L (28-32) pg MCHC (32-34) % RDW 19.7 H (13.2-15.2) % Lymph % (Auto) (13.4-35.0) % Eos % (Auto) 4.6 H (0.0-4.3) % Lymph # 0.8 L (1.2-5.4) K/mm3 Seg Neutrophils % 74.9 H (40.0-70.0) % PT (12.2-14.9) Sec. INR (0.87-1.13) D-Dimer (0-234) ng/mlDDU ABG pO2 (80.0-90.0) mm Hg ABG HCO3 (20.0-26.0) mmol/L ABG Base Excess (-2.0-3.0) mmol/L Sodium 136 L (137-145) mmol/L Carbon Dioxide 21 L (22-30) mmol/L Glucose 109 H (75-100) mg/dL Hemoglobin A1c (4-6) % Lactate Dehydrogenase 423 H (91-180) units/L C-Reactive Protein 8.40 H (0.00-1.30) mg/dL Albumin 3.7 L (3.9-5) g/dL 03/03/20 Range/Units 05:18 RBC (3.65-5.03) M/mm3 Hgb (11.8-15.2) gm/dl Hct (35.5-45.6) % MCV (84-94) fl MCH (28-32) pg MCHC (32-34) % RDW (13.2-15.2) % Lymph % (Auto) (13.4-35.0) % Eos % (Auto) (0.0-4.3) % Lymph # (1.2-5.4) K/mm3 Seg Neutrophils % (40.0-70.0) % PT (12.2-14.9) Sec. INR (0.87-1.13) D-Dimer (0-234) ng/mlDDU ABG pO2 (80.0-90.0) mm Hg ABG HCO3 (20.0-26.0) mmol/L ABG Base Excess (-2.0-3.0) mmol/L Sodium (137-145) mmol/L Carbon Dioxide (22-30) mmol/L Glucose (75-100) mg/dL Hemoglobin A1c 6.1 H (4-6) % Lactate Dehydrogenase (91-180) units/L C-Reactive Protein (0.00-1.30) mg/dL Albumin (3.9-5) g/dL Assessment and Plan Cultures: Blood culture 03/02/2020 NGTD A/P: 64 yo M no PMHx admitted as concern for COVID #Multifocal pneumonia: most likely COVID-19, pending test. 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 Defer ion HCQ given no evidence of efficacy. Continue CTX/azithromycin for now pending confirmation. Recs: -Please collect COVID-19 test. Follow up results. -Assuming positive please follow COVID labs q48h to include LDH, CRP, ferritin, d-dimer -Further recommendations pending confirmation of test. -Normal ferritin currently, but will follow. If worsening lab values and O2 requirements will strongly consider Actemra once diagnosis confirmed. Thank you for the consult, we will continue to follow. Jorge Dennis MD [facility] M: [phone] O: [phone] F: [phone]
[2020-03-03] MEDS: cefTRIAXone/NS 2 GM/100 ML 2 GM/100 ML BAG IV SCH (13:32)
--- NOTE | 2020-03-03 15:43 | Progress Note ---
Assessment and Plan Assessment and plan: -- Suspected 2019 novel coronavirus infection Current Visit: Yes Status: Acute Covid 19 protocol, contact and droplet isolation Follow call with test, ID following --Bilateral pneumonia Current Visit: Yes Status: Acute Oxygen titrate O2 sats to more than 90% IV Zithromax, Rocephin Follow cultures, ID following -- Respiratory failure with hypoxia Current Visit: Yes Status: Acute Oxygen titrate O2 sats to more than 90% IV antibiotics, supportive care --D-dimer, elevated Current Visit: Yes Status: Acute CTA negative for PE, DC full dose Lovenox Change to prophylaxis Lovenox Check lower extremity Doppler -- DVT prophylaxis Current Visit: Yes Status: Acute On Lopvenox and GI prophylaxis Follow ID evaluation recommendations Monitor closely and adjust management as needed Continue isolation precautions Plan of care reviewed with the patient and his nurse History Interval history: Patient seen and examined in his room this morning Isolation protocols observed, used PPE while evaluating the patient Patient complains of shortness of breath mild cough Alert awake oriented, obese Vital signs stable, in mild distress Hospitalist Physical - Constitutional Vitals: Temp Pulse Resp BP Pulse Ox 98.0 F 92 H 20 131/72 94 03/03/20 12:08 03/03/20 12:08 03/03/20 12:08 03/03/20 12:08 03/03/20 12:08 General appearance: Present: mild distress, well-nourished, obese - EENT Eyes: Present: PERRL, EOM intact - Neck Neck: Present: supple, normal ROM - Respiratory Respiratory effort: normal Respiratory: bilateral: diminished, rhonchi, negative: rales, wheezing - Cardiovascular Rhythm: regular Heart Sounds: Present: S1 & S2 - Extremities Extremities: no ischemia, No edema - Abdominal General gastrointestinal: soft, non-tender, non-distended, normal bowel sounds - Integumentary Integumentary: Present: clear, warm - Psychiatric Psychiatric: appropriate mood/affect, cooperative - Neurologic Neurologic: CNII-XII intact, moves all extremities Results - Labs CBC & Chem 7: 03/03/20 05:18 03/03/20 05:18 Labs: Laboratory Last Values WBC 5.8 K/mm3 (4.5-11.0) 03/03/20 05:18 RBC 5.29 M/mm3 (3.65-5.03) H 03/03/20 05:18 Hgb 11.0 gm/dl (11.8-15.2) L 03/03/20 05:18 Hct 34.0 % (35.5-45.6) L 03/03/20 05:18 MCV 64 fl (84-94) L 03/03/20 05:18 MCH 21 pg (28-32) L 03/03/20 05:18 MCHC 32 % (32-34) 03/03/20 05:18 RDW 19.7 % (13.2-15.2) H 03/03/20 05:18 Plt Count 353 K/mm3 (140-440) 03/03/20 05:18 Lymph % (Auto) 14.0 % (13.4-35.0) 03/03/20 05:18 [place] % (Auto) 6.2 % (0.0-7.3) 03/03/20 05:18 Eos % (Auto) 4.6 % (0.0-4.3) H 03/03/20 05:18 Baso % (Auto) 0.3 % (0.0-1.8) 03/03/20 05:18 Lymph # 0.8 K/mm3 (1.2-5.4) L 03/03/20 05:18 [place] # 0.4 K/mm3 (0.0-0.8) 03/03/20 05:18 Eos # 0.3 K/mm3 (0.0-0.4) 03/03/20 05:18 Baso # 0.0 K/mm3 (0.0-0.1) 03/03/20 05:18 Seg Neutrophils % 74.9 % (40.0-70.0) H 03/03/20 05:18 Seg Neutrophils # 4.4 K/mm3 (1.8-7.7) 03/03/20 05:18 PT 15.7 Sec. (12.2-14.9) H 03/02/20 16:57 INR 1.23 (0.87-1.13) H 03/02/20 16:57 APTT 28.7 Sec. (24.2-36.6) 03/02/20 16:57 D-Dimer 1805.97 ng/mlDDU (0-234) H 03/02/20 20:35 ABG pH 7.441 pH Units (7.350-7.450) 03/02/20 16:53 ABG pCO2 25.9 mm Hg 03/02/20 16:53 ABG pO2 65.8 mm Hg (80.0-90.0) L 03/02/20 16:53 ABG HCO3 17.2 mmol/L (20.0-26.0) L 03/02/20 16:53 ABG O2 Saturation TNR 03/02/20 16:53 ABG O2 Content 19.6 (0.0-44) 03/02/20 16:53 ABG Base Excess -5.0 mmol/L (-2.0-3.0) L 03/02/20 16:53 ABG Hemoglobin TNR 03/02/20 16:53 ABG Carboxyhemoglobin TNR 03/02/20 16:53 ABG Methemoglobin TNR 03/02/20 16:53 Oxyhemoglobin TNR 03/02/20 16:53 FiO2 0.36 % 03/02/20 16:53 Sodium 136 mmol/L (137-145) L 03/03/20 05:18 Potassium 4.3 mmol/L (3.6-5.0) 03/03/20 05:18 Chloride 99.9 mmol/L (98-107) 03/03/20 05:18 Carbon Dioxide 21 mmol/L (22-30) L 03/03/20 05:18 Anion Gap 19 mmol/L 03/03/20 05:18 BUN 12 mg/dL (9-20) 03/03/20 05:18 Creatinine 1.0 mg/dL (0.8-1.5) 03/03/20 05:18 Estimated GFR > 60 ml/min 03/03/20 05:18 BUN/Creatinine Ratio 12 % 03/03/20 05:18 Glucose 97 mg/dL (75-100) 03/03/20 05:18 Hemoglobin A1c 6.1 % (4-6) H 03/03/20 05:18 Lactic Acid 1.20 mmol/L (0.7-2.0) 03/02/20 16:57 Calcium 9.2 mg/dL (8.4-10.2) 03/03/20 05:18 Magnesium 1.90 mg/dL (1.7-2.3) 03/02/20 16:57 Transferrin 267 mg/dl (180-329) 03/02/20 16:57 Ferritin 135.5 ng/mL (13.0-400.0) 03/02/20 20:35 Total Bilirubin 0.40 mg/dL (0.1-1.2) 03/03/20 05:18 Direct Bilirubin < 0.2 mg/dL (0-0.2) 03/02/20 16:57 Indirect Bilirubin 0.2 mg/dL 03/02/20 16:57 AST 23 units/L (5-40) 03/03/20 05:18 ALT 15 units/L (7-56) 03/03/20 05:18 Alkaline Phosphatase 64 units/L (35-129) 03/03/20 05:18 Lactate Dehydrogenase 423 units/L (91-180) H 03/02/20 20:35 Total Creatine Kinase 90 units/L (55-170) 03/02/20 16:57 Total Creatine Kinase 93 units/L (55-170) 03/02/20 16:57 CK-MB (CK-2) 2.8 ng/mL (0.0-4.0) 03/02/20 16:57 CK-MB (CK-2) 2.8 ng/mL (0.0-4.0) 03/02/20 16:57 CK-MB (CK-2) Rel Index 3.0 (0-4) 03/02/20 16:57 CK-MB (CK-2) Rel Index 3.1 (0-4) 03/02/20 16:57 Troponin T < 0.010 ng/mL (0.00-0.029) 03/02/20 19:30 C-Reactive Protein 8.40 mg/dL (0.00-1.30) H 03/02/20 20:35 NT-Pro-B Natriuret Pep 193.4 pg/mL (0-900) 03/02/20 16:57 Total Protein 7.4 g/dL (6.3-8.2) 03/03/20 05:18 Albumin 3.7 g/dL (3.9-5) L 03/03/20 05:18 Albumin/Globulin Ratio 1.0 % 03/03/20 05:18 Procalcitonin 0.20 ng/mL (<0.15) 03/02/20 20:35 Urine Color Yellow (Yellow) 03/03/20 Unknown Urine Turbidity Clear (Clear) 03/03/20 Unknown Urine pH 5.0 (5.0-7.0) 03/03/20 Unknown Ur Specific [place] 1.029 (1.003-1.030) 03/03/20 Unknown Urine Protein <15 mg/dl mg/dL (Negative) 03/03/20 Unknown Urine Glucose (UA) Neg mg/dL (Negative) 03/03/20 Unknown Urine Ketones Neg mg/dL (Negative) 03/03/20 Unknown Urine Blood Neg (Negative) 03/03/20 Unknown Urine Nitrite Neg (Negative) 03/03/20 Unknown Urine Bilirubin Neg (Negative) 03/03/20 Unknown Urine Urobilinogen 2.0 mg/dL (<2.0) 03/03/20 Unknown Ur Leukocyte Esterase Neg (Negative) 03/03/20 Unknown Urine WBC (Auto) 1.0 /HPF (0.0-6.0) 03/03/20 Unknown Urine RBC (Auto) 2.0 /HPF (0.0-6.0) 03/03/20 Unknown U Epithel Cells (Auto) 1.0 /HPF (0-13.0) 03/03/20 Unknown Urine Bacteria (Auto) 1+ /HPF (Negative) 03/03/20 Unknown Urine Mucus 2+ /HPF 03/03/20 Unknown Microbiology: Microbiology 03/02/20 16:57 Peripheral/Venous Blood Culture - Preliminary Culture in Progress 03/02/20 16:57 Peripheral/Venous Blood Culture - Preliminary Culture in Progress [place]/IV: Voiding Method Toilet IV Catheter Type [Right Peripheral IV Forearm] Active Medications - Current Medications Current Medications: Generic Name Dose Route Start Last Admin Trade Name Freq PRN Reason Stop Dose Admin Acetaminophen 650 mg 03/02/20 22:38 03/03/20 13:32 Tylenol PO 650 mg Q4H PRN Administration Pain MILD(1-3)/Fever >100.5/BRUNO Azithromycin 500 mg 03/04/20 10:00 Zithromax PO 03/07/20 10:01 QDAY NOLAN Cholecalciferol 5,000 unit 03/03/20 10:00 03/03/20 09:10 Vitamin D3 PO 5,000 unit DAILY NOLAN Administration Enoxaparin Sodium 130 mg 03/02/20 23:00 03/03/20 10:05 Enoxaparin SUB-Q 130 mg Q12H NOLAN Administration Famotidine 20 mg 03/03/20 10:00 03/03/20 09:05 Pepcid PO 20 mg BID NOLAN Administration Hydromorphone HCl 0.5 mg 03/02/20 22:38 Dilaudid IV Q3H PRN Pain , Severe (7-10) Ceftriaxone Sodium 2 gm in 100 mls @ 200 mls/hr 03/03/20 12:00 03/03/20 13:32 Rocephin/Ns 2 Gm/100 Ml IV 200 mls/hr Q24HR NOLAN Administration Magnesium Oxide 400 mg 03/03/20 10:00 03/03/20 09:05 Mag-Ox PO 400 mg QDAY NOLAN Administration Metoclopramide HCl 10 mg 03/02/20 22:38 Reglan IV Q6H PRN Nausea And Vomiting Multivitamins/Minerals 1 each 03/03/20 10:00 03/03/20 09:05 Theragran-M Tab PO 1 each QDAY NOLAN Administration Ondansetron HCl 4 mg 03/02/20 22:38 Zofran IV Q8H PRN Nausea And Vomiting Oxycodone/Acetaminophen 1 tab 03/02/20 22:38 Percocet 5/325 PO Q6H PRN Pain, Moderate (4-6) Sodium Chloride 10 ml 03/03/20 10:00 03/03/20 09:06 Sodium Chloride Flush Syringe 10 Ml IV 10 ml BID NOLAN Administration Sodium Chloride 10 ml 03/02/20 22:38 Sodium Chloride Flush Syringe 10 Ml IV PRN PRN LINE FLUSH Zinc Sulfate 220 mg 03/04/20 10:00 Zinc Sulfate PO DAILY NOLAN
[2020-03-04] MEDS: ACETAMINOPHEN 325 MG TAB PO PRN ×4 (05:59→22:40)
--- NOTE | 2020-03-04 09:02 | Progress Note ---
Assessment and Plan Assessment and plan: --COVID -19 positive. --Positive 2019 novel coronavirus infection Current Visit: Yes Status: Acute Covid 19 protocol, contact and droplet isolation Follow inflammatory markers, ID following --Febrile illness secondary to COVID infection;--Severe COVID infection supportive care IV fluids antibiotics --Bilateral pneumonia Current Visit: Yes Status: Acute Oxygen titrate O2 sats to more than 90% IV Zithromax, Rocephin Follow cultures, ID following -- Respiratory failure with hypoxia Current Visit: Yes Status: Acute Oxygen titrate O2 sats to more than 90% IV antibiotics, supportive care --D-dimer, elevated Current Visit: Yes Status: Acute CTA negative for PE, Check lower extremity Doppler if negative Change to prophylaxis Lovenox DC full dose Lovenox -- DVT prophylaxis Current Visit: Yes Status: Acute On Lopvenox and GI prophylaxis Follow ID evaluation recommendations Monitor closely and adjust management as needed Continue isolation precautions Plan of care reviewed with the patient and his nurse History Interval history: I have seen and examined this patient in his room this morning COVID positive, observed contact and droplet isolation precautions Used PPE during rounding and evaluating the patient Patient spiked temperature T-max 102 F Complains of mild shortness of breath and cough Alert awake oriented x3 In mild distress Vital signs reviewed Hospitalist Physical - Constitutional Vitals: Temp Pulse Resp BP Pulse Ox 102.4 F H 95 H 18 140/76 97 03/04/20 05:39 03/04/20 05:39 03/04/20 05:39 03/04/20 05:39 03/04/20 05:39 General appearance: Present: mild distress, well-nourished, obese - EENT Eyes: Present: PERRL, EOM intact - Neck Neck: Present: supple, normal ROM - Respiratory Respiratory effort: normal Respiratory: bilateral: diminished, rhonchi, negative: rales, wheezing - Cardiovascular Rhythm: regular Heart Sounds: Present: S1 & S2 - Extremities Extremities: no ischemia, No edema - Abdominal General gastrointestinal: soft, non-tender, non-distended, normal bowel sounds - Integumentary Integumentary: Present: clear, warm - Psychiatric Psychiatric: appropriate mood/affect, cooperative - Neurologic Neurologic: moves all extremities Results - Labs CBC & Chem 7: 03/03/20 05:18 03/03/20 05:18 Labs: Laboratory Last Values WBC 5.8 K/mm3 (4.5-11.0) 03/03/20 05:18 RBC 5.29 M/mm3 (3.65-5.03) H 03/03/20 05:18 Hgb 11.0 gm/dl (11.8-15.2) L 03/03/20 05:18 Hct 34.0 % (35.5-45.6) L 03/03/20 05:18 MCV 64 fl (84-94) L 03/03/20 05:18 MCH 21 pg (28-32) L 03/03/20 05:18 MCHC 32 % (32-34) 03/03/20 05:18 RDW 19.7 % (13.2-15.2) H 03/03/20 05:18 Plt Count 353 K/mm3 (140-440) 03/03/20 05:18 Lymph % (Auto) 14.0 % (13.4-35.0) 03/03/20 05:18 [place] % (Auto) 6.2 % (0.0-7.3) 03/03/20 05:18 Eos % (Auto) 4.6 % (0.0-4.3) H 03/03/20 05:18 Baso % (Auto) 0.3 % (0.0-1.8) 03/03/20 05:18 Lymph # 0.8 K/mm3 (1.2-5.4) L 03/03/20 05:18 [place] # 0.4 K/mm3 (0.0-0.8) 03/03/20 05:18 Eos # 0.3 K/mm3 (0.0-0.4) 03/03/20 05:18 Baso # 0.0 K/mm3 (0.0-0.1) 03/03/20 05:18 Seg Neutrophils % 74.9 % (40.0-70.0) H 03/03/20 05:18 Seg Neutrophils # 4.4 K/mm3 (1.8-7.7) 03/03/20 05:18 PT 15.7 Sec. (12.2-14.9) H 03/02/20 16:57 INR 1.23 (0.87-1.13) H 03/02/20 16:57 APTT 28.7 Sec. (24.2-36.6) 03/02/20 16:57 D-Dimer 1805.97 ng/mlDDU (0-234) H 03/02/20 20:35 ABG pH 7.441 pH Units (7.350-7.450) 03/02/20 16:53 ABG pCO2 25.9 mm Hg 03/02/20 16:53 ABG pO2 65.8 mm Hg (80.0-90.0) L 03/02/20 16:53 ABG HCO3 17.2 mmol/L (20.0-26.0) L 03/02/20 16:53 ABG O2 Saturation TNR 03/02/20 16:53 ABG O2 Content 19.6 (0.0-44) 03/02/20 16:53 ABG Base Excess -5.0 mmol/L (-2.0-3.0) L 03/02/20 16:53 ABG Hemoglobin TNR 03/02/20 16:53 ABG Carboxyhemoglobin TNR 03/02/20 16:53 ABG Methemoglobin TNR 03/02/20 16:53 Oxyhemoglobin TNR 03/02/20 16:53 FiO2 0.36 % 03/02/20 16:53 Sodium 136 mmol/L (137-145) L 03/03/20 05:18 Potassium 4.3 mmol/L (3.6-5.0) 03/03/20 05:18 Chloride 99.9 mmol/L (98-107) 03/03/20 05:18 Carbon Dioxide 21 mmol/L (22-30) L 03/03/20 05:18 Anion Gap 19 mmol/L 03/03/20 05:18 BUN 12 mg/dL (9-20) 03/03/20 05:18 Creatinine 1.0 mg/dL (0.8-1.5) 03/03/20 05:18 Estimated GFR > 60 ml/min 03/03/20 05:18 BUN/Creatinine Ratio 12 % 03/03/20 05:18 Glucose 97 mg/dL (75-100) 03/03/20 05:18 Hemoglobin A1c 6.1 % (4-6) H 03/03/20 05:18 Lactic Acid 1.20 mmol/L (0.7-2.0) 03/02/20 16:57 Calcium 9.2 mg/dL (8.4-10.2) 03/03/20 05:18 Magnesium 1.90 mg/dL (1.7-2.3) 03/02/20 16:57 Transferrin 267 mg/dl (180-329) 03/02/20 16:57 Ferritin 135.5 ng/mL (13.0-400.0) 03/02/20 20:35 Total Bilirubin 0.40 mg/dL (0.1-1.2) 03/03/20 05:18 Direct Bilirubin < 0.2 mg/dL (0-0.2) 03/02/20 16:57 Indirect Bilirubin 0.2 mg/dL 03/02/20 16:57 AST 23 units/L (5-40) 03/03/20 05:18 ALT 15 units/L (7-56) 03/03/20 05:18 Alkaline Phosphatase 64 units/L (35-129) 03/03/20 05:18 Lactate Dehydrogenase 423 units/L (91-180) H 03/02/20 20:35 Total Creatine Kinase 90 units/L (55-170) 03/02/20 16:57 Total Creatine Kinase 93 units/L (55-170) 03/02/20 16:57 CK-MB (CK-2) 2.8 ng/mL (0.0-4.0) 03/02/20 16:57 CK-MB (CK-2) 2.8 ng/mL (0.0-4.0) 03/02/20 16:57 CK-MB (CK-2) Rel Index 3.0 (0-4) 03/02/20 16:57 CK-MB (CK-2) Rel Index 3.1 (0-4) 03/02/20 16:57 Troponin T < 0.010 ng/mL (0.00-0.029) 03/02/20 19:30 C-Reactive Protein 8.40 mg/dL (0.00-1.30) H 03/02/20 20:35 NT-Pro-B Natriuret Pep 193.4 pg/mL (0-900) 03/02/20 16:57 Total Protein 7.4 g/dL (6.3-8.2) 03/03/20 05:18 Albumin 3.7 g/dL (3.9-5) L 03/03/20 05:18 Albumin/Globulin Ratio 1.0 % 03/03/20 05:18 Procalcitonin 0.20 ng/mL (<0.15) 03/02/20 20:35 Urine Color Yellow (Yellow) 03/03/20 Unknown Urine Turbidity Clear (Clear) 03/03/20 Unknown Urine pH 5.0 (5.0-7.0) 03/03/20 Unknown Ur Specific [place] 1.029 (1.003-1.030) 03/03/20 Unknown Urine Protein <15 mg/dl mg/dL (Negative) 03/03/20 Unknown Urine Glucose (UA) Neg mg/dL (Negative) 03/03/20 Unknown Urine Ketones Neg mg/dL (Negative) 03/03/20 Unknown Urine Blood Neg (Negative) 03/03/20 Unknown Urine Nitrite Neg (Negative) 03/03/20 Unknown Urine Bilirubin Neg (Negative) 03/03/20 Unknown Urine Urobilinogen 2.0 mg/dL (<2.0) 03/03/20 Unknown Ur Leukocyte Esterase Neg (Negative) 03/03/20 Unknown Urine WBC (Auto) 1.0 /HPF (0.0-6.0) 03/03/20 Unknown Urine RBC (Auto) 2.0 /HPF (0.0-6.0) 03/03/20 Unknown U Epithel Cells (Auto) 1.0 /HPF (0-13.0) 03/03/20 Unknown Urine Bacteria (Auto) 1+ /HPF (Negative) 03/03/20 Unknown Urine Mucus 2+ /HPF 03/03/20 Unknown Coronavirus (PCR) Positive (Negative) A 03/03/20 08:24 Microbiology: Microbiology 03/02/20 16:57 Peripheral/Venous Blood Culture - Preliminary NO GROWTH AFTER 24 HOURS 03/02/20 16:57 Peripheral/Venous Blood Culture - Preliminary NO GROWTH AFTER 24 HOURS [place]/IV: Voiding Method Toilet IV Catheter Type [Right Peripheral IV Forearm] Active Medications - Current Medications Current Medications: Generic Name Dose Route Start Last Admin Trade Name Freq PRN Reason Stop Dose Admin Acetaminophen 650 mg 03/02/20 22:38 03/04/20 05:59 Tylenol PO 650 mg Q4H PRN Administration Pain MILD(1-3)/Fever >100.5/BRUNO Cholecalciferol 5,000 unit 03/03/20 10:00 03/03/20 09:10 Vitamin D3 PO 5,000 unit DAILY [facility] Administration Enoxaparin Sodium 130 mg 03/02/20 23:00 03/03/20 23:40 Enoxaparin SUB-Q 130 mg Q12H NOLAN Administration Famotidine 20 mg 03/03/20 10:00 03/03/20 21:08 Pepcid PO 20 mg BID [facility] Administration Hydromorphone HCl 0.5 mg 03/02/20 22:38 Dilaudid IV Q3H PRN Pain , Severe (7-10) Ceftriaxone Sodium 2 gm in 100 mls @ 200 mls/hr 03/03/20 12:00 03/03/20 13:32 Rocephin/Ns 2 Gm/100 Ml IV 200 mls/hr Q24HR [facility] Administration Magnesium Oxide 400 mg 03/03/20 10:00 03/03/20 09:05 Mag-Ox PO 400 mg QDAY [facility] Administration Metoclopramide HCl 10 mg 03/02/20 22:38 Reglan IV Q6H PRN Nausea And Vomiting Multivitamins/Minerals 1 each 03/03/20 10:00 03/03/20 09:05 Theragran-M Tab PO 1 each QDAY [facility] Administration Ondansetron HCl 4 mg 03/02/20 22:38 Zofran IV Q8H PRN Nausea And Vomiting Oxycodone/Acetaminophen 1 tab 03/02/20 22:38 Percocet 5/325 PO Q6H PRN Pain, Moderate (4-6) Sodium Chloride 10 ml 03/03/20 10:00 03/03/20 21:08 Sodium Chloride Flush Syringe 10 Ml IV 10 ml BID [facility] Administration Sodium Chloride 10 ml 03/02/20 22:38 Sodium Chloride Flush Syringe 10 Ml IV PRN PRN LINE FLUSH Zinc Sulfate 220 mg 03/04/20 10:00 Zinc Sulfate PO DAILY [facility]
[2020-03-04] MEDS ORDERED: AZITHROMYCIN 250 MG TAB PO SCH (10:00)
[2020-03-04] MEDS ORDERED: cefTRIAXone/NS 1 GM/50 ML 1 GM/50 ML BAG IV SCH (10:00)
[2020-03-04] MEDS: cefTRIAXone/NS 2 GM/100 ML 2 GM/100 ML BAG IV SCH (10:00)
[2020-03-04] MEDS: ZINC SULFATE 220 MG CAP PO SCH (10:01)
[2020-03-04] MEDS: MULTIVITAMINS,THER W-MINERALS TAB PO SCH (10:02)
[2020-03-04] MEDS: MAGNESIUM OXIDE 400 MG TAB PO SCH (10:02)
[2020-03-04] MEDS: FAMOTIDINE 20 MG TAB PO SCH ×3 (10:02→22:41)
[2020-03-04] MEDS: CHOLECALCIFEROL (VIT D3) 5,000 UNIT TAB PO SCH (10:03)
[2020-03-04] MEDS: ENOXAPARIN 150 MG/1 ML INJ SUB-Q SCH ×2 (10:14→22:47)
[2020-03-04 11:16] LABS: C-Reactive Protein 10.2 mg/dL (0.00-1.30)
--- NOTE | 2020-03-04 12:33 | Progress Note ---
Assessment and Plan Cultures: Blood culture 03/02/2020 NGTD A/P: 64 yo M no PMHx admitted as concern for COVID #Multifocal pneumonia: most likely COVID-19, pending test. 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 Defer ion HCQ given no evidence of efficacy. Continue CTX/azithromycin for now pending confirmation. #COVID-19 Recs: -Assuming positive please follow COVID labs q48h to include LDH, CRP, ferritin, d-dimer -Normal ferritin currently, but will follow. If worsening lab values and O2 requirements will strongly consider Actemra. -03/04/2020: Stable inflammatory markers and O2 requirements. No need for Actemra at this time. We will follow and update if needed. He is about 5 to 6 days of severe symptoms, his respiratory status improved over the next couple days okay to discharge. Thank you for the consult, we will continue to follow. Jorge Dennis MD [facility] ([facility]) M: [phone] O: [phone] F: [phone] Subjective Date of service: 03/04/20 Interval history: Patient remains febrile. I called the patient, and he was able to carry on a co nversation without becoming short of breath. He notes that he went for a shower and was able to do that without any issue. He notes that he is on 3 to 4 L of oxygen, which is stable for him. He has no new complaints at this time, and he does feel slightly improved. Objective - Exam Narrative Exam: Physical exam: Reviewed in chart but deferred due to PPE conservation strategy. - Constitutional Vitals: Vital Signs Temp Pulse Resp BP Pulse Ox 102.4 F H 95 H 18 140/76 97 03/04/20 05:39 03/04/20 05:39 03/04/20 05:39 03/04/20 05:39 03/04/20 05:39 Temperature -Last 24 Hours Temperature 102.4 F Temperature 98.9 F Temperature 100.5 F - Labs CBC & Chem 7: 03/03/20 05:18 03/03/20 05:18 Labs: Abnormal lab results 03/03/20 03/04/20 Range/Units 08:24 10:23 Lactate Dehydrogenase 338 H (91-180) units/L C-Reactive Protein 10.20 H (0.00-1.30) mg/dL Coronavirus (PCR) Positive A (Negative)
--- NOTE | 2020-03-04 18:44 | Vascular Lab Report ---
DUPLEX DOPPLER LOWER EXTREMITY VEINS, BILATERAL INDICATION: Elevated D-dimers/evaluate for DVT. TECHNIQUE: Duplex doppler imaging was performed through the veins of both lower extremities using venous reva krista and other maneuvers. COMPARISON: No relevant prior imaging study available. FINDINGS: Right Common femoral vein: Negative. Right Superficial femoral vein: Negative. Right Popliteal vein: Negative. Right Calf veins: Negative. Left Common femoral vein: Negative. Left Superficial femoral vein: Negative. Left Popliteal vein: Negative. Left Calf veins: Negative. Additional findings: None.. IMPRESSION: 1. No sonographic evidence for DVT in either lower extremity. Signer Name: Ahmet Quiles MD Signed: 03/04/2020 6:40 PM Workstation Name: [id number]
[2020-03-05] MEDS: ACETAMINOPHEN 325 MG TAB PO PRN ×4 (06:28→23:57)
[2020-03-05] MEDS: ENOXAPARIN 150 MG/1 ML INJ SUB-Q SCH (10:12)
[2020-03-05] MEDS: cefTRIAXone/NS 2 GM/100 ML 2 GM/100 ML BAG IV SCH (10:12)
[2020-03-05] MEDS: ZINC SULFATE 220 MG CAP PO SCH (10:13)
[2020-03-05] MEDS: CHOLECALCIFEROL (VIT D3) 5,000 UNIT TAB PO SCH (10:13)
[2020-03-05] MEDS: FAMOTIDINE 20 MG TAB PO SCH ×2 (10:13→22:18)
[2020-03-05] MEDS: MAGNESIUM OXIDE 400 MG TAB PO SCH (10:13)
[2020-03-05] MEDS: MULTIVITAMINS,THER W-MINERALS TAB PO SCH (10:13)
--- NOTE | 2020-03-05 13:47 | Progress Note ---
Assessment and Plan Cultures: Blood culture 03/02/2020 NGTD A/P: 64 yo M no PMHx admitted with for COVID #Multifocal pneumonia: most likely COVID-19, pending test. 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 Defer ion HCQ given no evidence of efficacy. Continue CTX/azithromycin for now pending confirmation. #COVID-19 Recs: -Assuming positive please follow COVID labs q48h to include LDH, CRP, ferritin, d-dimer -Normal ferritin currently, but will follow. If worsening lab values and O2 requirements will strongly consider Actemra. -03/04/2020: Stable inflammatory markers and O2 requirements. No need for Actemra at this time. We will follow and update if needed. He is about 5 to 6 days of severe symptoms, his respiratory status improved over the next couple da ys okay to discharge. Thank you for the consult, we will continue to follow. Jorge Dennis MD [facility] ([facility]) M: [phone] O: [phone] F: [phone] Subjective Date of service: 03/05/20 Interval history: Patient now afebrile. No acute changes today. Objective - Constitutional Vitals: Vital Signs Temp Pulse Resp BP Pulse Ox 99.3 F 80 22 122/69 92 03/05/20 11:36 03/05/20 11:36 03/05/20 11:36 03/05/20 11:36 03/05/20 11:36 Temperature -Last 24 Hours Temperature 99.3 F Temperature 99.8 F Temperature 98.8 F Temperature 98.2 F - Labs CBC & Chem 7: 03/03/20 05:18 03/03/20 05:18
--- NOTE | 2020-03-05 20:09 | Progress Note ---
Assessment and Plan Assessment and plan: --COVID -19 positive. --Positive 2019 novel coronavirus infection Current Visit: Yes Status: Acute Covid 19 protocol, contact and droplet isolation Follow inflammatory markers, ID following --Febrile illness secondary to COVID infection; --Severe COVID infection supportive care IV fluids antibiotics --Bilateral pneumonia Current Visit: Yes Status: Acute Oxygen titrate O2 sats to more than 90% IV Zithromax, Rocephin Follow cultures, ID following -- Respiratory failure with hypoxia Current Visit: Yes Status: Acute Oxygen titrate O2 sats to more than 90% IV antibiotics, supportive care --D-dimer, elevated Current Visit: Yes Status: Acute CTA negative for PE, Check lower extremity Doppler if negative Change to prophylaxis Lovenox DC full dose Lovenox -- DVT prophylaxis Current Visit: Yes Status: Acute On Lopvenox and GI prophylaxis Follow ID evaluation recommendations Monitor closely and adjust management as needed Continue isolation precautions Plan of care reviewed with the patient and his nurse History Interval history: Patient seen and examined in his room this morning at the bedside Isolation precautions followed, I used PPE per protocol when I examined and evaluated the patient Patient complains of generalized weakness Vital signs noted Hospitalist Physical - Constitutional Vitals: Temp Pulse Resp BP Pulse Ox 99.6 F 79 20 131/67 95 03/05/20 18:05 03/05/20 18:05 03/05/20 18:05 03/05/20 18:05 03/05/20 18:05 General appearance: Present: mild distress, well-nourished, obese - EENT Eyes: Present: PERRL, EOM intact - Neck Neck: Present: supple, normal ROM - Respiratory Respiratory effort: normal Respiratory: bilateral: diminished, negative: rales, rhonchi, wheezing - Cardiovascular Rhythm: regular Heart Sounds: Present: S1 & S2 - Extremities Extremities: no ischemia, No edema - Abdominal General gastrointestinal: soft, non-tender, non-distended, normal bowel sounds - Integumentary Integumentary: Present: clear, warm - Psychiatric Psychiatric: appropriate mood/affect, cooperative - Neurologic Neurologic: CNII-XII intact, moves all extremities Results - Labs CBC & Chem 7: 03/03/20 05:18 03/03/20 05:18 Labs: Laboratory Last Values WBC 5.8 K/mm3 (4.5-11.0) 03/03/20 05:18 RBC 5.29 M/mm3 (3.65-5.03) H 03/03/20 05:18 Hgb 11.0 gm/dl (11.8-15.2) L 03/03/20 05:18 Hct 34.0 % (35.5-45.6) L 03/03/20 05:18 MCV 64 fl (84-94) L 03/03/20 05:18 MCH 21 pg (28-32) L 03/03/20 05:18 MCHC 32 % (32-34) 03/03/20 05:18 RDW 19.7 % (13.2-15.2) H 03/03/20 05:18 Plt Count 353 K/mm3 (140-440) 03/03/20 05:18 Lymph % (Auto) 14.0 % (13.4-35.0) 03/03/20 05:18 [place] % (Auto) 6.2 % (0.0-7.3) 03/03/20 05:18 Eos % (Auto) 4.6 % (0.0-4.3) H 03/03/20 05:18 Baso % (Auto) 0.3 % (0.0-1.8) 03/03/20 05:18 Lymph # 0.8 K/mm3 (1.2-5.4) L 03/03/20 05:18 [place] # 0.4 K/mm3 (0.0-0.8) 03/03/20 05:18 Eos # 0.3 K/mm3 (0.0-0.4) 03/03/20 05:18 Baso # 0.0 K/mm3 (0.0-0.1) 03/03/20 05:18 Seg Neutrophils % 74.9 % (40.0-70.0) H 03/03/20 05:18 Seg Neutrophils # 4.4 K/mm3 (1.8-7.7) 03/03/20 05:18 PT 15.7 Sec. (12.2-14.9) H 03/02/20 16:57 INR 1.23 (0.87-1.13) H 03/02/20 16:57 APTT 28.7 Sec. (24.2-36.6) 03/02/20 16:57 D-Dimer 1805.97 ng/mlDDU (0-234) H 03/02/20 20:35 ABG pH 7.441 pH Units (7.350-7.450) 03/02/20 16:53 ABG pCO2 25.9 mm Hg 03/02/20 16:53 ABG pO2 65.8 mm Hg (80.0-90.0) L 03/02/20 16:53 ABG HCO3 17.2 mmol/L (20.0-26.0) L 03/02/20 16:53 ABG O2 Saturation TNR 03/02/20 16:53 ABG O2 Content 19.6 (0.0-44) 03/02/20 16:53 ABG Base Excess -5.0 mmol/L (-2.0-3.0) L 03/02/20 16:53 ABG Hemoglobin TNR 03/02/20 16:53 ABG Carboxyhemoglobin TNR 03/02/20 16:53 ABG Methemoglobin TNR 03/02/20 16:53 Oxyhemoglobin TNR 03/02/20 16:53 FiO2 0.36 % 03/02/20 16:53 Sodium 136 mmol/L (137-145) L 03/03/20 05:18 Potassium 4.3 mmol/L (3.6-5.0) 03/03/20 05:18 Chloride 99.9 mmol/L (98-107) 03/03/20 05:18 Carbon Dioxide 21 mmol/L (22-30) L 03/03/20 05:18 Anion Gap 19 mmol/L 03/03/20 05:18 BUN 12 mg/dL (9-20) 03/03/20 05:18 Creatinine 1.0 mg/dL (0.8-1.5) 03/03/20 05:18 Estimated GFR > 60 ml/min 03/03/20 05:18 BUN/Creatinine Ratio 12 % 03/03/20 05:18 Glucose 97 mg/dL (75-100) 03/03/20 05:18 Hemoglobin A1c 6.1 % (4-6) H 03/03/20 05:18 Lactic Acid 1.20 mmol/L (0.7-2.0) 03/02/20 16:57 Calcium 9.2 mg/dL (8.4-10.2) 03/03/20 05:18 Magnesium 1.90 mg/dL (1.7-2.3) 03/02/20 16:57 Transferrin 267 mg/dl (180-329) 03/02/20 16:57 Ferritin 102.8 ng/mL (13.0-400.0) 03/04/20 10:23 Total Bilirubin 0.40 mg/dL (0.1-1.2) 03/03/20 05:18 Direct Bilirubin < 0.2 mg/dL (0-0.2) 03/02/20 16:57 Indirect Bilirubin 0.2 mg/dL 03/02/20 16:57 AST 23 units/L (5-40) 03/03/20 05:18 ALT 15 units/L (7-56) 03/03/20 05:18 Alkaline Phosphatase 64 units/L (35-129) 03/03/20 05:18 Lactate Dehydrogenase 338 units/L (91-180) H 03/04/20 10:23 Total Creatine Kinase 90 units/L (55-170) 03/02/20 16:57 Total Creatine Kinase 93 units/L (55-170) 03/02/20 16:57 CK-MB (CK-2) 2.8 ng/mL (0.0-4.0) 03/02/20 16:57 CK-MB (CK-2) 2.8 ng/mL (0.0-4.0) 03/02/20 16:57 CK-MB (CK-2) Rel Index 3.0 (0-4) 03/02/20 16:57 CK-MB (CK-2) Rel Index 3.1 (0-4) 03/02/20 16:57 Troponin T < 0.010 ng/mL (0.00-0.029) 03/02/20 19:30 C-Reactive Protein 10.20 mg/dL (0.00-1.30) H 03/04/20 10:23 NT-Pro-B Natriuret Pep 193.4 pg/mL (0-900) 03/02/20 16:57 Total Protein 7.4 g/dL (6.3-8.2) 03/03/20 05:18 Albumin 3.7 g/dL (3.9-5) L 03/03/20 05:18 Albumin/Globulin Ratio 1.0 % 03/03/20 05:18 Procalcitonin 0.20 ng/mL (<0.15) 03/02/20 20:35 Urine Color Yellow (Yellow) 03/03/20 Unknown Urine Turbidity Clear (Clear) 03/03/20 Unknown Urine pH 5.0 (5.0-7.0) 03/03/20 Unknown Ur Specific [place] 1.029 (1.003-1.030) 03/03/20 Unknown Urine Protein <15 mg/dl mg/dL (Negative) 03/03/20 Unknown Urine Glucose (UA) Neg mg/dL (Negative) 03/03/20 Unknown Urine Ketones Neg mg/dL (Negative) 03/03/20 Unknown Urine Blood Neg (Negative) 03/03/20 Unknown Urine Nitrite Neg (Negative) 03/03/20 Unknown Urine Bilirubin Neg (Negative) 03/03/20 Unknown Urine Urobilinogen 2.0 mg/dL (<2.0) 03/03/20 Unknown Ur Leukocyte Esterase Neg (Negative) 03/03/20 Unknown Urine WBC (Auto) 1.0 /HPF (0.0-6.0) 03/03/20 Unknown Urine RBC (Auto) 2.0 /HPF (0.0-6.0) 03/03/20 Unknown U Epithel Cells (Auto) 1.0 /HPF (0-13.0) 03/03/20 Unknown Urine Bacteria (Auto) 1+ /HPF (Negative) 03/03/20 Unknown Urine Mucus 2+ /HPF 03/03/20 Unknown Coronavirus (PCR) Positive (Negative) A 03/03/20 08:24 Microbiology: Microbiology 03/02/20 16:57 Peripheral/Venous Blood Culture - Preliminary NO GROWTH AFTER 48 HOURS 03/02/20 16:57 Peripheral/Venous Blood Culture - Preliminary NO GROWTH AFTER 48 HOURS Hope/IV: Voiding Method Toilet IV Catheter Type [Right Peripheral IV Forearm] Active Medications - Current Medications Current Medications: Generic Name Dose Route Start Last Admin Trade Name Freq PRN Reason Stop Dose Admin Acetaminophen 650 mg 03/02/20 22:38 03/05/20 18:11 Tylenol PO 650 mg Q4H PRN Administration Pain MILD(1-3)/Fever >100.5/BRUNO Cholecalciferol 5,000 unit 03/03/20 10:00 03/05/20 10:13 Vitamin D3 PO 5,000 unit DAILY NOLAN Administration Enoxaparin Sodium 130 mg 03/02/20 23:00 03/05/20 10:12 Enoxaparin SUB-Q 130 mg Q12H NOLAN Administration Famotidine 20 mg 03/03/20 10:00 03/05/20 10:13 Pepcid PO 20 mg BID NOLAN Administration Hydromorphone HCl 0.5 mg 03/02/20 22:38 Dilaudid IV Q3H PRN Pain , Severe (7-10) Magnesium Oxide 400 mg 03/03/20 10:00 03/05/20 10:13 Mag-Ox PO 400 mg QDAY NOLAN Administration Metoclopramide HCl 10 mg 03/02/20 22:38 Reglan IV Q6H PRN Nausea And Vomiting Multivitamins/Minerals 1 each 03/03/20 10:00 03/05/20 10:13 Theragran-M Tab PO 1 each QDAY NOLAN Administration Ondansetron HCl 4 mg 03/02/20 22:38 Zofran IV Q8H PRN Nausea And Vomiting Oxycodone/Acetaminophen 1 tab 03/02/20 22:38 Percocet 5/325 PO Q6H PRN Pain, Moderate (4-6) Sodium Chloride 10 ml 03/03/20 10:00 03/05/20 10:14 Sodium Chloride Flush Syringe 10 Ml IV 10 ml BID NOLAN Administration Sodium Chloride 10 ml 03/02/20 22:38 Sodium Chloride Flush Syringe 10 Ml IV PRN PRN LINE FLUSH Zinc Sulfate 220 mg 03/04/20 10:00 03/05/20 10:13 Zinc Sulfate PO 220 mg DAILY NOLAN Administration
[2020-03-05] MEDS: ENOXAPARIN 40 MG/0.4 ML INJ SUB-Q SCH (22:18)
[2020-03-06] MEDS: MULTIVITAMINS,THER W-MINERALS TAB PO SCH (09:26)
[2020-03-06] MEDS: FAMOTIDINE 20 MG TAB PO SCH ×2 (09:26→21:35)
[2020-03-06] MEDS: MAGNESIUM OXIDE 400 MG TAB PO SCH (09:26)
[2020-03-06] MEDS: ZINC SULFATE 220 MG CAP PO SCH (09:26)
[2020-03-06] MEDS: CHOLECALCIFEROL (VIT D3) 5,000 UNIT TAB PO SCH (09:26)
--- NOTE | 2020-03-06 14:08 | Progress Note ---
Assessment and Plan Cultures: Blood culture 03/02/2020 NGTD A/P: 64 yo M no PMHx admitted with for COVID #Multifocal pneumonia: most likely COVID-19, pending test. 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 Defer ion HCQ given no evidence of efficacy. Continue CTX/azithromycin for now pending confirmation. #COVID-19 Recs: -Assuming positive please follow COVID labs q48h to include LDH, CRP, ferritin, d-dimer -Normal ferritin currently, but will follow. If worsening lab values and O2 requirements will strongly consider Actemra. -03/06/2020: Stable inflammatory markers and O2 requirements. No need for Actemra at this time. We will follow and update if needed. Assuming he remains afebrile and his respiratory status improved over the next couple days okay to discharge. Thank you for the consult, we will continue to follow. Jorge Dennis MD [facility] ([facility]) M: [phone] O: [phone] F: [phone] Subjective Date of service: 03/06/20 Interval history: Now febrile to 100.5 degrees. No acute changes today. Remains on 3.5 L nasal cannula. Objective - Exam Narrative Exam: Physical exam: Reviewed in chart but deferred due to PPE conservation strategy. - Constitutional Vitals: Vital Signs Temp Pulse Resp BP Pulse Ox 100.5 F H 77 18 136/64 100 03/06/20 11:11 03/06/20 11:11 03/06/20 11:11 03/06/20 11:11 03/06/20 12:50 Temperature -Last 24 Hours Temperature 100.5 F Temperature 97.5 F Temperature 98.3 F Temperature 99.6 F - Labs CBC & Chem 7: 03/03/20 05:18 03/03/20 05:18
--- NOTE | 2020-03-06 15:17 | Progress Note ---
Assessment and Plan Assessment and plan: --COVID -19 positive. --Positive 2019 novel coronavirus infection Current Visit: Yes Status: Acute Covid 19 protocol, contact and droplet isolation Follow inflammatory markers, ID following --Febrile illness secondary to COVID infection; Antipyretics supportive care --Severe COVID infection supportive care IV fluids received antibiotics. --Bilateral pneumonia Current Visit: Yes Status: Acute Oxygen titrate O2 sats to more than 90% s/p Zithromax, Rocephin, monitor off antibiotics Follow cultures, ID following -- Respiratory failure with hypoxia Current Visit: Yes Status: Acute Oxygen titrate O2 sats to more than 90% supportive care, home oxygen evaluation --D-dimer, elevated Current Visit: Yes Status: Acute CTA negative for PE, lower extremity Doppler, negative DVT -- DVT prophylaxis Current Visit: Yes Status: Acute On Lopvenox and GI prophylaxis Follow ID evaluation recommendations Monitor closely and adjust management as needed Continue isolation precautions Disposition; follow ID recommendations Possible DC 1 to 2 days if stable Brief history: 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 Call with test positive Evaluated by ID, had extensive work-up, home oxygen evaluation Has low-grade temp today, anxious to go home brief history History Interval history: Patient seen and examined in his room this morning. COVID positive patient, contact and droplet isolation observed I used PPE while rounding and examining the patient Patient feels slightly better anxious to go home However has low-grade fever of 100.5 F Plaints of mild shortness of breath and weakness Vital signs reviewed Hospitalist Physical - Constitutional Vitals: Temp Pulse Resp BP Pulse Ox 100.5 F H 77 18 136/64 100 03/06/20 11:11 03/06/20 11:11 03/06/20 11:11 03/06/20 11:11 03/06/20 12:50 General appearance: Present: mild distress, well-nourished, obese, other (Febrile) - EENT Eyes: Present: PERRL, EOM intact - Neck Neck: Present: supple, normal ROM - Respiratory Respiratory effort: normal Respiratory: bilateral: diminished, rhonchi, negative: rales, wheezing - Cardiovascular Rhythm: regular Heart Sounds: Present: S1 & S2 - Extremities Extremities: no ischemia, No edema - Abdominal General gastrointestinal: soft, non-tender, non-distended, normal bowel sounds - Integumentary Integumentary: Present: clear, warm - Psychiatric Psychiatric: appropriate mood/affect, cooperative - Neurologic Neurologic: moves all extremities Results - Labs CBC & Chem 7: 03/03/20 05:18 03/03/20 05:18 Labs: Laboratory Last Values WBC 5.8 K/mm3 (4.5-11.0) 03/03/20 05:18 RBC 5.29 M/mm3 (3.65-5.03) H 03/03/20 05:18 Hgb 11.0 gm/dl (11.8-15.2) L 03/03/20 05:18 Hct 34.0 % (35.5-45.6) L 03/03/20 05:18 MCV 64 fl (84-94) L 03/03/20 05:18 MCH 21 pg (28-32) L 03/03/20 05:18 MCHC 32 % (32-34) 03/03/20 05:18 RDW 19.7 % (13.2-15.2) H 03/03/20 05:18 Plt Count 353 K/mm3 (140-440) 03/03/20 05:18 Lymph % (Auto) 14.0 % (13.4-35.0) 03/03/20 05:18 [place] % (Auto) 6.2 % (0.0-7.3) 03/03/20 05:18 Eos % (Auto) 4.6 % (0.0-4.3) H 03/03/20 05:18 Baso % (Auto) 0.3 % (0.0-1.8) 03/03/20 05:18 Lymph # 0.8 K/mm3 (1.2-5.4) L 03/03/20 05:18 [place] # 0.4 K/mm3 (0.0-0.8) 03/03/20 05:18 Eos # 0.3 K/mm3 (0.0-0.4) 03/03/20 05:18 Baso # 0.0 K/mm3 (0.0-0.1) 03/03/20 05:18 Seg Neutrophils % 74.9 % (40.0-70.0) H 03/03/20 05:18 Seg Neutrophils # 4.4 K/mm3 (1.8-7.7) 03/03/20 05:18 PT 15.7 Sec. (12.2-14.9) H 03/02/20 16:57 INR 1.23 (0.87-1.13) H 03/02/20 16:57 APTT 28.7 Sec. (24.2-36.6) 03/02/20 16:57 D-Dimer 1805.97 ng/mlDDU (0-234) H 03/02/20 20:35 ABG pH 7.441 pH Units (7.350-7.450) 03/02/20 16:53 ABG pCO2 25.9 mm Hg 03/02/20 16:53 ABG pO2 65.8 mm Hg (80.0-90.0) L 03/02/20 16:53 ABG HCO3 17.2 mmol/L (20.0-26.0) L 03/02/20 16:53 ABG O2 Saturation TNR 03/02/20 16:53 ABG O2 Content 19.6 (0.0-44) 03/02/20 16:53 ABG Base Excess -5.0 mmol/L (-2.0-3.0) L 03/02/20 16:53 ABG Hemoglobin TNR 03/02/20 16:53 ABG Carboxyhemoglobin TNR 03/02/20 16:53 ABG Methemoglobin TNR 03/02/20 16:53 Oxyhemoglobin TNR 03/02/20 16:53 FiO2 0.36 % 03/02/20 16:53 Sodium 136 mmol/L (137-145) L 03/03/20 05:18 Potassium 4.3 mmol/L (3.6-5.0) 03/03/20 05:18 Chloride 99.9 mmol/L (98-107) 03/03/20 05:18 Carbon Dioxide 21 mmol/L (22-30) L 03/03/20 05:18 Anion Gap 19 mmol/L 03/03/20 05:18 BUN 12 mg/dL (9-20) 03/03/20 05:18 Creatinine 1.0 mg/dL (0.8-1.5) 03/03/20 05:18 Estimated GFR > 60 ml/min 03/03/20 05:18 BUN/Creatinine Ratio 12 % 03/03/20 05:18 Glucose 97 mg/dL (75-100) 03/03/20 05:18 Hemoglobin A1c 6.1 % (4-6) H 03/03/20 05:18 Lactic Acid 1.20 mmol/L (0.7-2.0) 03/02/20 16:57 Calcium 9.2 mg/dL (8.4-10.2) 03/03/20 05:18 Magnesium 1.90 mg/dL (1.7-2.3) 03/02/20 16:57 Transferrin 267 mg/dl (180-329) 03/02/20 16:57 Ferritin 102.8 ng/mL (13.0-400.0) 03/04/20 10:23 Total Bilirubin 0.40 mg/dL (0.1-1.2) 03/03/20 05:18 Direct Bilirubin < 0.2 mg/dL (0-0.2) 03/02/20 16:57 Indirect Bilirubin 0.2 mg/dL 03/02/20 16:57 AST 23 units/L (5-40) 03/03/20 05:18 ALT 15 units/L (7-56) 03/03/20 05:18 Alkaline Phosphatase 64 units/L (35-129) 03/03/20 05:18 Lactate Dehydrogenase 338 units/L (91-180) H 03/04/20 10:23 Total Creatine Kinase 90 units/L (55-170) 03/02/20 16:57 Total Creatine Kinase 93 units/L (55-170) 03/02/20 16:57 CK-MB (CK-2) 2.8 ng/mL (0.0-4.0) 03/02/20 16:57 CK-MB (CK-2) 2.8 ng/mL (0.0-4.0) 03/02/20 16:57 CK-MB (CK-2) Rel Index 3.0 (0-4) 03/02/20 16:57 CK-MB (CK-2) Rel Index 3.1 (0-4) 03/02/20 16:57 Troponin T < 0.010 ng/mL (0.00-0.029) 03/02/20 19:30 C-Reactive Protein 10.20 mg/dL (0.00-1.30) H 03/04/20 10:23 NT-Pro-B Natriuret Pep 193.4 pg/mL (0-900) 03/02/20 16:57 Total Protein 7.4 g/dL (6.3-8.2) 03/03/20 05:18 Albumin 3.7 g/dL (3.9-5) L 03/03/20 05:18 Albumin/Globulin Ratio 1.0 % 03/03/20 05:18 Procalcitonin 0.20 ng/mL (<0.15) 03/02/20 20:35 Urine Color Yellow (Yellow) 03/03/20 Unknown Urine Turbidity Clear (Clear) 03/03/20 Unknown Urine pH 5.0 (5.0-7.0) 03/03/20 Unknown Ur Specific [place] 1.029 (1.003-1.030) 03/03/20 Unknown Urine Protein <15 mg/dl mg/dL (Negative) 03/03/20 Unknown Urine Glucose (UA) Neg mg/dL (Negative) 03/03/20 Unknown Urine Ketones Neg mg/dL (Negative) 03/03/20 Unknown Urine Blood Neg (Negative) 03/03/20 Unknown Urine Nitrite Neg (Negative) 03/03/20 Unknown Urine Bilirubin Neg (Negative) 03/03/20 Unknown Urine Urobilinogen 2.0 mg/dL (<2.0) 03/03/20 Unknown Ur Leukocyte Esterase Neg (Negative) 03/03/20 Unknown Urine WBC (Auto) 1.0 /HPF (0.0-6.0) 03/03/20 Unknown Urine RBC (Auto) 2.0 /HPF (0.0-6.0) 03/03/20 Unknown U Epithel Cells (Auto) 1.0 /HPF (0-13.0) 03/03/20 Unknown Urine Bacteria (Auto) 1+ /HPF (Negative) 03/03/20 Unknown Urine Mucus 2+ /HPF 03/03/20 Unknown Coronavirus (PCR) Positive (Negative) A 03/03/20 08:24 Microbiology: Microbiology 03/02/20 16:57 Peripheral/Venous Blood Culture - Preliminary NO GROWTH AFTER 72 HOURS 03/02/20 16:57 Peripheral/Venous Blood Culture - Preliminary NO GROWTH AFTER 72 HOURS Hope/IV: Voiding Method Toilet IV Catheter Type [Right INT / Saline Lock Forearm] Active Medications - Current Medications Current Medications: Generic Name Dose Route Start Last Admin Trade Name [place] PRN Reason Stop Dose Admin Acetaminophen 650 mg 03/02/20 22:38 03/05/20 23:57 Tylenol PO 650 mg Q4H PRN Administration Pain MILD(1-3)/Fever >100.5/BRUNO Cholecalciferol 5,000 unit 03/03/20 10:00 03/06/20 09:26 Vitamin D3 PO 5,000 unit DAILY NOLAN Administration Enoxaparin Sodium 40 mg 03/05/20 22:00 03/05/20 22:18 Enoxaparin SUB-Q 40 mg QDAY@2200 NOLAN Administration Famotidine 20 mg 03/03/20 10:00 03/06/20 09:26 Pepcid PO 20 mg BID NOLAN Administration Hydromorphone HCl 0.5 mg 03/02/20 22:38 Dilaudid IV Q3H PRN Pain , Severe (7-10) Magnesium Oxide 400 mg 03/03/20 10:00 03/06/20 09:26 Mag-Ox PO 400 mg QDAY NOLAN Administration Metoclopramide HCl 10 mg 03/02/20 22:38 Reglan IV Q6H PRN Nausea And Vomiting Multivitamins/Minerals 1 each 03/03/20 10:00 03/06/20 09:26 Theragran-M Tab PO 1 each QDAY NOLAN Administration Ondansetron HCl 4 mg 03/02/20 22:38 Zofran IV Q8H PRN Nausea And Vomiting Oxycodone/Acetaminophen 1 tab 03/02/20 22:38 Percocet 5/325 PO Q6H PRN Pain, Moderate (4-6) Sodium Chloride 10 ml 03/03/20 10:00 03/06/20 09:26 Sodium Chloride Flush Syringe 10 Ml IV 10 ml BID NOLAN Administration Sodium Chloride 10 ml 03/02/20 22:38 Sodium Chloride Flush Syringe 10 Ml IV PRN PRN LINE FLUSH Zinc Sulfate 220 mg 03/04/20 10:00 03/06/20 09:26 Zinc Sulfate PO 220 mg DAILY NOLAN Administration
[2020-03-06] MEDS: ENOXAPARIN 40 MG/0.4 ML INJ SUB-Q SCH (21:35)
--- NOTE | 2020-03-07 09:23 | Discharge Summary ---
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 Chest x-ray revealed bilateral infiltrates. Patient was admitted with diagnosis of COVID-19 positive/viral pneumonia, sepsis and acute hypoxemic respiratory failure. Evaluated by ID, had extensive work-up including trending of inflammatory markers. Patient was treated with IV antibiotics and oxygen was weaned down to 2.5 L. Case management arrange for home oxygen. ID felt patient could discharge home with no medications only home O2. Dedicated discharge time 35 minutes. Disposition: TO HOME OR SELFCARE Time spent for discharge: 35 - Discharge Diagnoses (1) COVID-19 virus detected Status: Acute (2) Sepsis Status: Acute (3) Bilateral pneumonia Status: Acute Qualifiers: Pneumonia type: due to unspecified organism Lung location: unspecified part of lung Qualified Code(s): J18.9 - Pneumonia, unspecified organism (4) Respiratory failure with hypoxia Status: Acute Qualifiers: Chronicity: acute Qualified Code(s): J96.01 - Acute respiratory failure with hypoxia Core Measure Documentation - Palliative Care Palliative Care/ Comfort Measures: Not Applicable - Core Measures Any of the following diagnoses?: none Exam - Constitutional Vitals: Temp Pulse Resp BP Pulse Ox 98.2 F 68 20 121/70 95 03/07/20 04:42 03/07/20 04:42 03/07/20 08:00 03/07/20 04:42 03/07/20 08:00 General appearance: Present: no acute distress, well-nourished - EENT Eyes: Present: PERRL ENT: hearing intact, clear oral mucosa - Neck Neck: Present: supple, normal ROM - Respiratory Respiratory effort: normal Respiratory: bilateral: CTA - Cardiovascular Heart Sounds: Present: S1 & S2. Absent: rub, click - Extremities Extremities: pulses symmetrical, No edema Peripheral Pulses: within normal limits - Abdominal General gastrointestinal: Present: soft, non-tender, non-distended, normal bowel sounds Male genitourinary: Present: normal - Integumentary Integumentary: Present: clear, warm, dry - Musculoskeletal Musculoskeletal: gait normal, strength equal bilaterally - Psychiatric Psychiatric: appropriate mood/affect, intact judgment & insight - Neurologic Neurologic: CNII-XII intact, moves all extremities Plan Activity: advance as tolerated Weight Bearing Status: Full Weight Bearing Diet: regular Special Instructions: home oxygen via Follow up with: PRIMARY CARE, [Primary Care Provider] - 3-5 Days
[2020-03-07] MEDS: MULTIVITAMINS,THER W-MINERALS TAB PO SCH (09:34)
[2020-03-07] MEDS: ZINC SULFATE 220 MG CAP PO SCH (09:34)
[2020-03-07] MEDS: MAGNESIUM OXIDE 400 MG TAB PO SCH (09:34)
[2020-03-07] MEDS: FAMOTIDINE 20 MG TAB PO SCH (09:34)
[2020-03-07] MEDS: CHOLECALCIFEROL (VIT D3) 5,000 UNIT TAB PO SCH (09:35)
[2020-03-07 12:35] VITALS: BP 131/73
--- NOTE | 2020-03-07 13:00 | Progress Note ---
Assessment and Plan Cultures: Blood culture 03/02/2020 NGTD A/P: 64 yo M no PMHx admitted with for COVID #Multifocal pneumonia: most likely COVID-19, pending test. 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 Defer ion HCQ given no evidence of efficacy. Continue CTX/azithromycin for now pending confirmation. #COVID-19 Recs: -Assuming positive please follow COVID labs q48h to include LDH, CRP, ferritin, d-dimer -OK for DC from ID perspective today. No need for discharge medications. To go on home supplemental O2. Thank you for the consult, we will continue to follow. Jorge Dennis MD [facility] ([facility]) M: [phone] O: [phone] F: [phone] Subjective Date of service: 03/07/20 Interval history: Afebrile over last 24 hours. No acute changes today. Remains on 3.5 L nasal cannula. Objective - Exam Narrative Exam: Physical exam: Reviewed in chart but deferred due to PPE conservation strategy. - Constitutional Vitals: Vital Signs Temp Pulse Resp BP Pulse Ox 98.1 F 79 22 131/73 94 03/07/20 11:17 03/07/20 11:17 03/07/20 11:17 03/07/20 11:17 03/07/20 11:17 Temperature -Last 24 Hours Temperature 98.1 F Temperature 98.2 F Temperature 99.1 F Temperature 99.0 F - Labs CBC & Chem 7: 03/03/20 05:18 03/03/20 05:18
== END 2020-03-07 14:22 | disposition home or self-care (01) | DRG 871 ==
LOC: ED 16:25 → 3A 19:12
PROVIDERS: ADMIT Internal Medicine; ATTEND Hospitalist
PROC: 4A033R1 Measurement of Arterial Saturation, Peripheral, Percutaneous Approach (ICD-10-PCS; principal; 2020-03-02)
DX: A41.89 Other specified sepsis (principal); U07.1 COVID-19; J12.89 Other viral pneumonia; J96.01 Acute respiratory failure with hypoxia; R79.89 Other specified abnormal findings of blood chemistry; Z79.82 Long term (current) use of aspirin; Z79.899 Other long term (current) drug therapy; Z88.8 Allergy status to other drugs, medicaments and biological substances; Z88.6 Allergy status to analgesic agent; Z82.49 Family history of ischemic heart disease and other diseases of the circulatory system; Z90.49 Acquired absence of other specified parts of digestive tract
CPT/HCPCS: 36415; 36600; 71045; 71275; 80048; 80053; 80076; 81001; 82140; 82550; 82553; 82728; 82803; 82947; 83036; 83615; 83735; 83880; 84145; 84466; 84484; 85025; 85379; 85610; 85730; 86140; 87040; 93005; 93970; 94760; G0378; J0456; J0692; J0696; J1650; J7050; Q9967; U0003

== ENCOUNTER 2021-01-25 11:00 | Outpatient (CLI) | payer BC | END 2021-01-26 11:00 | disposition home or self-care (01) | LOC: SLR 11:00 | PROVIDERS: ATTEND Internal Medicine | DX: G47.33 Obstructive sleep apnea (adult) (pediatric) (principal) | CPT/HCPCS: 95810 ==

== ENCOUNTER → 2021-02-28 | Outpatient (CLI) | payer BC | END | disposition home or self-care (01) | LOC: SLR 11:00 | PROVIDERS: ATTEND Internal Medicine | DX: G47.30 Sleep apnea, unspecified (principal) | CPT/HCPCS: 95811 ==

== ENCOUNTER 2021-06-05 07:49 | Outpatient (CLI) | payer BC ==
[2021-06-05 08:37] LABS: Basophils % (Auto) 0.2 % (0.0-1.8); Eosinophils % (Auto) 0.2 % (0.0-4.3); Hematocrit 40.4 % (35.5-45.6); Hemoglobin 13.8 gm/dl (11.8-15.2); Lymphocytes # (Auto) 0.6 K/mm3 (1.2-5.4); Lymphocytes % (Auto) 9.3 % (13.4-35.0); Mean Corpuscular HGB Conc 34 % (32-34); Mean Corpuscular Volume 81 fl (84-94); Monocytes # (Auto) 0.1 K/mm3 (0.0-0.8); Monocytes % (Auto) 1.7 % (0.0-7.3); Platelet Count 222 K/mm3 (140-440); Red Blood Count 5.02 M/mm3 (3.65-5.03); Red Cell Distribution Width 18.7 % (13.2-15.2)
[2021-06-05 11:32] LABS: Alanine Aminotransferase 27 units/L (7-56); Albumin 4.2 g/dL (3.9-5); BUN/Creatinine Ratio 16; Blood Urea Nitrogen 16 mg/dL (9-20); Calcium 9.4 mg/dL (8.4-10.2); HDL Cholesterol 41 mg/dL (40-59); Hemolysis Index 5; LDL Cholesterol,Direct 102 mg/dL (50-130)
[2021-06-09 12:27] LABS: Vitamin D, 25-OH, D2 <4 ng/mL
== END 2021-06-05 07:50 | disposition home or self-care (01) ==
LOC: LAB 07:49
PROVIDERS: ATTEND Internal Medicine
DX: Z00.00 Encounter for general adult medical examination without abnormal findings (principal); Z13.29 Encounter for screening for other suspected endocrine disorder; Z13.1 Encounter for screening for diabetes mellitus; E78.5 Hyperlipidemia, unspecified; E55.9 Vitamin D deficiency, unspecified
CPT/HCPCS: 36415; 80053; 80061; 82306; 83036; 84443; 85025

== ENCOUNTER 2021-07-06 23:09 | Emergency (ER) | payer BC ==
--- NOTE | 2021-07-07 00:12 | Emergency Department Report ---
- General Chief Complaint: Extremity Injury, Lower Stated Complaint: LEFT FOOT PAIN Time Seen by Provider: 07/06/21 23:49 Source: patient Mode of arrival: Ambulatory Limitations: No Limitations - History of Present Illness Initial Comments: 65-year-old male presents emerged part with complaining of having a blister to the foot for the past few days which have burst and began to get more red swollen and tender, chills, sweats chest pain palpitation no nausea -: Gradual Extremity Location: Left: Foot Place: home Context: accidental Associated Symptoms: denies: loss of feeling/numbness, suspect foreign body present, unable to move injured part, weakness followed by dizziness, nausea/vomiting - Related Data Home Medications Medication Instructions Recorded Confirmed Last Taken Aspirin 325 mg PO QDAY 08/11/18 03/03/20 08/11/18 Cyanocobalamin [Vitamin B-12] 1,000 mcg IM QWEEK 08/11/18 03/03/20 08/16/18 Fenofibrate 160 mg PO DAILY 08/11/18 03/03/20 08/16/18 Metaxalone [Skelaxin] 800 mg PO BID PRN 08/11/18 03/03/20 08/16/18 Multivit-Min/FA/Lycopen/Lutein 1 each PO DAILY 08/11/18 03/03/20 08/16/18 [Centrum Silver Men Tablet] Prasterone (Dhea)/Calcium Carb 1 each PO DAILY 08/11/18 03/03/20 08/16/18 [Dhea Tablet] Testosterone Cypionate 200 mg IM QMONTH 08/11/18 03/03/20 Unknown [Depo-Testosterone] Triamcinolone Aceton 0.1% (Nf) 1 applic TP BID 08/11/18 03/03/20 Unknown [Kenalog (NF)] bisacodyL [Dulcolax tab] 5 mg PO DAILY PRN 08/11/18 03/03/20 08/16/18 Cholecalciferol (Vitamin D3) 1,000 unit PO DAILY 08/14/18 03/03/20 08/17/18 [Vitamin D3] Famotidine [Acid Controller] 20 mg PO DAILY PRN 08/14/18 03/03/20 08/17/18 Krill Oil/[place]-3/Dha/Epa [[place]-3 1 each PO DAILY 08/14/18 03/03/20 08/16/18 Krill Oil Softgel] Melatonin/Pyridoxine HCl (B6) 1 each PO QHS PRN 08/14/18 03/03/20 08/15/18 [Melatonin Tr 10 mg Tablet] Naproxen Sodium [Aleve TAB] 220 mg PO Q8H PRN 08/14/18 03/03/20 08/11/18 Potassium Gluconate 550 mg PO DAILY 08/14/18 03/03/20 08/17/18 Previous Rx's Medication Instructions Recorded Last Taken Type oxyCODONE /ACETAMINOPHEN [Percocet 2 tab PO Q4H PRN #30 tablet 08/18/18 Unknown Rx 5/325 mg] Clindamycin [Clindamycin CAP] 150 mg PO Q8HR #30 capsule 07/07/21 Unknown Rx Mupirocin [Bactroban 2%] 1 applic TP TID #20 tube 07/07/21 Unknown Rx Allergies Allergy/AdvReac Type Severity Reaction Status Date / Time hydromorphone [From Dilaudid] AdvReac DIZZINESS, Verified 08/11/18 16:12 PT UNCOMFORTABLE WITH FEELING sulfamethoxazole AdvReac ABDOMINAL Verified 08/11/18 16:12 [From Bactrim] CRAMPS trimethoprim [From Bactrim] AdvReac ABDOMINAL Verified 08/11/18 16:12 CRAMPS ED Review of Systems ROS: Stated complaint: LEFT FOOT PAIN Other details as noted in HPI Comment: All other systems reviewed and negative ED Past Medical Hx - Past Medical History Previous Medical History?: Yes Hx Hypertension: Yes (documented in chart but patient denies diagnosis and is not on meds) Hx Heart Attack/AMI: No Hx Congestive Heart Failure: No Hx Diabetes: No Hx Liver Disease: No Hx Renal Disease: No Hx Sickle Cell Disease: No Hx Arthritis: Yes Hx Seizures: No Hx Asthma: No Hx COPD: No Hx Tuberculosis: No Hx HIV: No - Surgical History Past Surgical History?: Yes Hx Cholecystectomy: Yes (2003) - Social History Smoking Status: Never Smoker Substance Use Type: None - Medications Home Medications: Home Medications Medication Instructions Recorded Confirmed Last Taken Type Aspirin 325 mg PO QDAY 08/11/18 03/03/20 08/11/18 History Cyanocobalamin [Vitamin B-12] 1,000 mcg IM QWEEK 08/11/18 03/03/20 08/16/18 History Fenofibrate 160 mg PO DAILY 08/11/18 03/03/20 08/16/18 History Metaxalone [Skelaxin] 800 mg PO BID PRN 08/11/18 03/03/20 08/16/18 History Multivit-Min/FA/Lycopen/Lutein 1 each PO DAILY 08/11/18 03/03/20 08/16/18 History [Centrum Silver Men Tablet] Prasterone (Dhea)/Calcium Carb 1 each PO DAILY 08/11/18 03/03/20 08/16/18 History [Dhea Tablet] Testosterone Cypionate 200 mg IM QMONTH 08/11/18 03/03/20 Unknown History [Depo-Testosterone] Triamcinolone Aceton 0.1% (Nf) 1 applic TP BID 08/11/18 03/03/20 Unknown History [Kenalog (NF)] bisacodyL [Dulcolax tab] 5 mg PO DAILY PRN 08/11/18 03/03/20 08/16/18 History Cholecalciferol (Vitamin D3) 1,000 unit PO DAILY 08/14/18 03/03/20 08/17/18 History [Vitamin D3] Famotidine [Acid Controller] 20 mg PO DAILY PRN 08/14/18 03/03/20 08/17/18 History Krill Oil/[place]-3/Dha/Epa [[place]-3 1 each PO DAILY 08/14/18 03/03/20 08/16/18 History Krill Oil Softgel] Melatonin/Pyridoxine HCl (B6) 1 each PO QHS PRN 08/14/18 03/03/20 08/15/18 History [Melatonin Tr 10 mg Tablet] Naproxen Sodium [Aleve TAB] 220 mg PO Q8H PRN 08/14/18 03/03/20 08/11/18 History Potassium Gluconate 550 mg PO DAILY 08/14/18 03/03/20 08/17/18 History oxyCODONE /ACETAMINOPHEN [Percocet 2 tab PO Q4H PRN #30 tablet 08/18/18 03/03/20 Unknown Rx 5/325 mg] Clindamycin [Clindamycin CAP] 150 mg PO Q8HR #30 capsule 07/07/21 Unknown Rx Mupirocin [Bactroban 2%] 1 applic TP TID #20 tube 07/07/21 Unknown Rx ED Physical Exam - General Limitations: No Limitations General appearance: alert, in no apparent distress - Head Head exam: Present: atraumatic, normocephalic - Eye Eye exam: Present: normal appearance - ENT ENT exam: Present: mucous membranes moist - Neck Neck exam: Present: normal inspection - Respiratory Respiratory exam: Present: normal lung sounds bilaterally. Absent: respiratory distress - Cardiovascular Cardiovascular Exam: Present: regular rate, normal rhythm. Absent: systolic murmur, diastolic murmur, rubs, gallop - GI/Abdominal GI/Abdominal exam: Present: soft, normal bowel sounds - Rectal Rectal exam: Present: deferred - Extremities Exam Extremities exam: Present: normal inspection, tenderness (Pulses 2+ cap refill is brisk) - Back Exam Back exam: Present: normal inspection - Neurological Exam Neurological exam: Present: alert, oriented X3 - Psychiatric Psychiatric exam: Present: normal affect, normal mood - Skin Skin exam: Present: warm, dry, erythema (This due to metatarsal phalangeal joint ball of the foot with redness on the blister site). Absent: intact, normal color, rash ED Course Vital Signs 07/06/21 23:13 Temperature 97.8 F Pulse Rate 86 Respiratory 17 Rate Blood Pressure 132/78 O2 Sat by Pulse 99 Oximetry ED Medical Decision Making - Medical Decision Making 62-year-old male with no history of diabetes presents with an infected blister to the left foot and was evaluated by emergency department and dressed with aseptic bandage. Started on clindamycin and Bactroban ointment advised follow- up for wound reevaluation in 2 to 3 days Critical care attestation.: If time is entered above; I have spent that time in minutes in the direct care of this critically ill patient, excluding procedure time. ED Disposition Clinical Impression: Infected blister of left foot Disposition: HOME / SELF CARE / HOMELESS Is pt being admited?: No Does the pt Need Aspirin: No Condition: Stable Instructions: Cellulitis, Adult, Blisters, Adult Prescriptions: Mupirocin [Bactroban 2%] 1 applic TP TID #20 tube Clindamycin [Clindamycin CAP] 150 mg PO Q8HR #30 capsule Referrals: PRIMARY CARE, [Referring] - 3-5 Days
[2021-07-07 00:16] VITALS: BP 134/74
== END 2021-07-07 00:20 | disposition home or self-care (01) ==
LOC: ED 23:09
DX: S90.822A Blister (nonthermal), left foot, initial encounter (principal); I10 Essential (primary) hypertension; M19.90 Unspecified osteoarthritis, unspecified site; Z88.8 Allergy status to other drugs, medicaments and biological substances; Z79.899 Other long term (current) drug therapy; Z90.49 Acquired absence of other specified parts of digestive tract; X58.XXXA Exposure to other specified factors, initial encounter; Y93.89 Activity, other specified; Y92.009 Unspecified place in unspecified non-institutional (private) residence as the place of occurrence of the external cause; Y99.8 Other external cause status
CPT/HCPCS: 99282

== ENCOUNTER 2022-01-07 10:04 | Outpatient (CLI) | payer BC ==
--- NOTE | 2022-01-07 20:30 | XRay Report ---
LEFT FOOT 3 VIEW(S) INDICATION / CLINICAL INFORMATION: SORE OF BOTTOM OF FOOT COMPARISON: None available. FINDINGS: BONES / JOINT(S): There is irregularity to the fibular aspect of the first metatarsal head, as well a s irregularity to the fibular base of the proximal phalanx of the first digit. These findings are con cerning for osteomyelitis. No significant arthritis. SOFT TISSUES: Soft tissue swelling about the forefoot. ADDITIONAL FINDINGS: None. Signer Name: Gulshan Hankins DO Signed: 01/07/2022 8:26 PM Workstation Name: [id number]
== END 2022-01-07 10:05 | disposition home or self-care (01) ==
LOC: XRAY 10:04
PROVIDERS: ATTEND Surgery
DX: S91.301A Unspecified open wound, right foot, initial encounter (principal); M79.89 Other specified soft tissue disorders; M86.8X7 Other osteomyelitis, ankle and foot; X58.XXXA Exposure to other specified factors, initial encounter; Y93.89 Activity, other specified; Y92.89 Other specified places as the place of occurrence of the external cause; Y99.8 Other external cause status

== ENCOUNTER 2022-01-18 08:40 | Outpatient (CLI) | payer BC ==
[2022-01-18] MEDS ORDERED: LIDOCAINE (4%) 40 MG/ML TOPICAL SOLN 50 ML BOTTLE TP ONE (09:15)
== END 2022-01-18 08:41 | disposition home or self-care (01) ==
LOC: WOUND 08:40
PROVIDERS: ATTEND Surgery
DX: L89.893 Pressure ulcer of other site, stage 3 (principal); I70.245 Atherosclerosis of native arteries of left leg with ulceration of other part of foot; L97.521 Non-pressure chronic ulcer of other part of left foot limited to breakdown of skin; L02.612 Cutaneous abscess of left foot; S91.301A Unspecified open wound, right foot, initial encounter; M86.071 Acute hematogenous osteomyelitis, right ankle and foot; L84 Corns and callosities; G90.09 Other idiopathic peripheral autonomic neuropathy; Z79.899 Other long term (current) drug therapy; X58.XXXA Exposure to other specified factors, initial encounter; Y93.89 Activity, other specified; Y92.89 Other specified places as the place of occurrence of the external cause; Y99.8 Other external cause status
CPT/HCPCS: 10060; 87076; 87116; 87186

== ENCOUNTER 2022-01-25 09:57 | Outpatient (CLI) | payer BC ==
[2022-01-25] MEDS ORDERED: LIDOCAINE (4%) 40 MG/ML TOPICAL SOLN 50 ML BOTTLE TP ONE (11:00)
[2022-01-25] MEDS ORDERED: SILVER NITRATE APPLICATOR 1 EA TP ONE (17:00)
== END 2022-01-25 09:58 | disposition home or self-care (01) ==
LOC: WOUND 09:57
PROVIDERS: ATTEND Surgery
DX: L89.893 Pressure ulcer of other site, stage 3 (principal); I70.245 Atherosclerosis of native arteries of left leg with ulceration of other part of foot; L97.521 Non-pressure chronic ulcer of other part of left foot limited to breakdown of skin; L02.612 Cutaneous abscess of left foot; S91.301D Unspecified open wound, right foot, subsequent encounter; M86.071 Acute hematogenous osteomyelitis, right ankle and foot; L84 Corns and callosities; G90.09 Other idiopathic peripheral autonomic neuropathy; Z79.899 Other long term (current) drug therapy; X58.XXXD Exposure to other specified factors, subsequent encounter

== ENCOUNTER 2022-02-02 11:51 | Outpatient (CLI) | payer BC ==
[2022-02-02 12:33] LABS: Hematocrit 42.1 % (35.5-45.6); Hemoglobin 13.7 gm/dl (11.8-15.2); Mean Corpuscular HGB Conc 33 % (32-34); Mean Corpuscular Volume 77 fl (84-94); Platelet Count 292 K/mm3 (140-440); Red Blood Count 5.47 M/mm3 (3.65-5.03); Red Cell Distribution Width 17.1 % (13.2-15.2)
[2022-02-02 12:48] LABS: Alanine Aminotransferase 23 units/L (7-56); Albumin 3.9 g/dL (3.9-5); BUN/Creatinine Ratio 23; Blood Urea Nitrogen 18 mg/dL (9-20); Hemolysis Index 2
== END 2022-02-02 11:52 | disposition home or self-care (01) ==
LOC: LAB 11:51
PROVIDERS: ATTEND Internal Medicine Infectious Disease
DX: M86.8X7 Other osteomyelitis, ankle and foot (principal)
CPT/HCPCS: 36415; 80053; 85027; 86140

== ENCOUNTER 2022-02-08 09:34 | Outpatient (CLI) | payer BC ==
[2022-02-08] MEDS ORDERED: LIDOCAINE (4%) 40 MG/ML TOPICAL SOLN 50 ML BOTTLE TP ONE (10:06)
[2022-02-08] MEDS ORDERED: SILVER NITRATE APPLICATOR 1 EA TP SCH (11:35)
== END 2022-02-08 09:35 | disposition home or self-care (01) ==
LOC: WOUND 09:34
PROVIDERS: ATTEND Surgery
DX: L89.893 Pressure ulcer of other site, stage 3 (principal); I70.245 Atherosclerosis of native arteries of left leg with ulceration of other part of foot; L97.521 Non-pressure chronic ulcer of other part of left foot limited to breakdown of skin; L02.612 Cutaneous abscess of left foot; S91.301D Unspecified open wound, right foot, subsequent encounter; L84 Corns and callosities; G90.09 Other idiopathic peripheral autonomic neuropathy; M86.071 Acute hematogenous osteomyelitis, right ankle and foot; Z79.899 Other long term (current) drug therapy; X58.XXXD Exposure to other specified factors, subsequent encounter

== ENCOUNTER 2022-02-08 13:04 | Outpatient (CLI) | payer BC ==
[2022-02-08 13:31] LABS: Basophils % (Auto) 0.8 % (0.0-1.8); Eosinophils # (Auto) 0.3 K/mm3 (0.0-0.4); Eosinophils % (Auto) 5.3 % (0.0-4.3); Hematocrit 40.7 % (35.5-45.6); Hemoglobin 13.2 gm/dl (11.8-15.2); Lymphocytes # (Auto) 2.1 K/mm3 (1.2-5.4); Lymphocytes % (Auto) 32.8 % (13.4-35.0); Mean Corpuscular HGB Conc 33 % (32-34); Mean Corpuscular Volume 78 fl (84-94); Monocytes # (Auto) 0.7 K/mm3 (0.0-0.8); Monocytes % (Auto) 10.3 % (0.0-7.3); Platelet Count 191 K/mm3 (140-440); Red Blood Count 5.24 M/mm3 (3.65-5.03); Red Cell Distribution Width 18.1 % (13.2-15.2)
[2022-02-08 13:52] LABS: Alanine Aminotransferase 22 units/L (7-56); Albumin 3.8 g/dL (3.9-5); BUN/Creatinine Ratio 20; Blood Urea Nitrogen 16 mg/dL (9-20); Calcium 9.6 mg/dL (8.4-10.2); Hemolysis Index 2
== END 2022-02-08 13:05 | disposition home or self-care (01) ==
LOC: LAB 13:04
PROVIDERS: ATTEND Internal Medicine Infectious Disease
DX: M86.8X7 Other osteomyelitis, ankle and foot (principal); Z88.8 Allergy status to other drugs, medicaments and biological substances
CPT/HCPCS: 36415; 80053; 85025; 86140

== ENCOUNTER 2022-02-15 11:27 | Outpatient (CLI) | payer BC ==
[2022-02-15 12:24] LABS: Alanine Aminotransferase 25 units/L (7-56); Albumin 4.1 g/dL (3.9-5); BUN/Creatinine Ratio 21; Blood Urea Nitrogen 17 mg/dL (9-20); Calcium 10.1 mg/dL (8.4-10.2); Hemolysis Index 3
[2022-02-15 12:26] LABS: Hematocrit 42.3 % (35.5-45.6); Hemoglobin 14.2 gm/dl (11.8-15.2); Mean Corpuscular HGB Conc 34 % (32-34); Mean Corpuscular Volume 79 fl (84-94); Platelet Count 194 K/mm3 (140-440); Red Blood Count 5.38 M/mm3 (3.65-5.03); Red Cell Distribution Width 18.9 % (13.2-15.2)
== END 2022-02-15 11:28 | disposition home or self-care (01) ==
LOC: LAB 11:27
PROVIDERS: ATTEND Internal Medicine Infectious Disease
DX: M86.8X7 Other osteomyelitis, ankle and foot (principal); Z88.8 Allergy status to other drugs, medicaments and biological substances
CPT/HCPCS: 36415; 80053; 85027; 86140

== ENCOUNTER 2022-02-22 09:53 | Outpatient (CLI) | payer BC ==
[2022-02-22] MEDS ORDERED: LIDOCAINE (4%) 40 MG/ML TOPICAL SOLN 50 ML BOTTLE TP ONE (10:16)
== END 2022-02-22 09:54 | disposition home or self-care (01) ==
LOC: WOUND 09:53
PROVIDERS: ATTEND Surgery
DX: L02.612 Cutaneous abscess of left foot (principal); S91.301D Unspecified open wound, right foot, subsequent encounter; G90.09 Other idiopathic peripheral autonomic neuropathy; M86.071 Acute hematogenous osteomyelitis, right ankle and foot; Z79.899 Other long term (current) drug therapy; X58.XXXD Exposure to other specified factors, subsequent encounter
CPT/HCPCS: 10060

== ENCOUNTER 2022-02-22 12:33 | Outpatient (CLI) | payer BC ==
[2022-02-22 13:12] LABS: Basophils % (Auto) 0.6 % (0.0-1.8); Eosinophils # (Auto) 0.3 K/mm3 (0.0-0.4); Eosinophils % (Auto) 4.4 % (0.0-4.3); Hematocrit 38.4 % (35.5-45.6); Hemoglobin 12.8 gm/dl (11.8-15.2); Lymphocytes # (Auto) 1.8 K/mm3 (1.2-5.4); Mean Corpuscular HGB Conc 33 % (32-34); Mean Corpuscular Volume 79 fl (84-94); Monocytes # (Auto) 0.6 K/mm3 (0.0-0.8); Monocytes % (Auto) 8.7 % (0.0-7.3); Platelet Count 197 K/mm3 (140-440); Red Blood Count 4.87 M/mm3 (3.65-5.03); Red Cell Distribution Width 19.5 % (13.2-15.2)
[2022-02-22 13:45] LABS: Alanine Aminotransferase 23 units/L (7-56); Albumin 3.9 g/dL (3.9-5); Blood Urea Nitrogen 12 mg/dL (9-20); Calcium 9.5 mg/dL (8.4-10.2); Hemolysis Index 8
[2022-02-22 13:48] LABS: BUN/Creatinine Ratio 17
== END 2022-02-22 12:34 | disposition home or self-care (01) ==
LOC: LAB 12:33
PROVIDERS: ATTEND Internal Medicine Infectious Disease
DX: M86.8X7 Other osteomyelitis, ankle and foot (principal)
CPT/HCPCS: 36415; 80053; 85025; 86140

== ENCOUNTER 2022-03-02 12:01 | Outpatient (CLI) | payer BC ==
[2022-03-02 12:38] LABS: Hematocrit 42.7 % (35.5-45.6); Hemoglobin 13.9 gm/dl (11.8-15.2); Mean Corpuscular HGB Conc 33 % (32-34); Mean Corpuscular Volume 80 fl (84-94); Platelet Count 226 K/mm3 (140-440); Red Blood Count 5.31 M/mm3 (3.65-5.03)
[2022-03-02 12:54] LABS: Alanine Aminotransferase 24 units/L (7-56); Albumin 4.6 g/dL (3.9-5); BUN/Creatinine Ratio 19; Blood Urea Nitrogen 15 mg/dL (9-20); Calcium 9.9 mg/dL (8.4-10.2); Hemolysis Index 7
[2022-03-02 12:58] LABS: Red Cell Distribution Width 20.7 % (13.2-15.2)
== END 2022-03-02 12:02 | disposition home or self-care (01) ==
LOC: LAB 12:01
PROVIDERS: ATTEND Internal Medicine Infectious Disease
DX: M86.8X7 Other osteomyelitis, ankle and foot (principal)
CPT/HCPCS: 36415; 80053; 85027; 86140

== ENCOUNTER 2022-03-08 10:00 | Outpatient (CLI) | payer BC ==
[2022-03-08] MEDS ORDERED: LIDOCAINE (4%) 40 MG/ML TOPICAL SOLN 50 ML BOTTLE TP ONE ×2 (11:01→14:43)
== END 2022-03-08 10:01 | disposition home or self-care (01) ==
LOC: WOUND 10:00
PROVIDERS: ATTEND Surgery
DX: L02.612 Cutaneous abscess of left foot (principal); S91.301D Unspecified open wound, right foot, subsequent encounter; G90.09 Other idiopathic peripheral autonomic neuropathy; M86.071 Acute hematogenous osteomyelitis, right ankle and foot; Z79.899 Other long term (current) drug therapy; X58.XXXD Exposure to other specified factors, subsequent encounter

== ENCOUNTER 2022-03-08 12:58 | Outpatient (CLI) | payer BC ==
[2022-03-08 13:29] LABS: Hematocrit 42.1 % (35.5-45.6); Hemoglobin 13.8 gm/dl (11.8-15.2); Mean Corpuscular HGB Conc 33 % (32-34); Mean Corpuscular Volume 82 fl (84-94); Platelet Count 232 K/mm3 (140-440); Red Blood Count 5.17 M/mm3 (3.65-5.03)
[2022-03-08 13:30] LABS: Red Cell Distribution Width 20.5 % (13.2-15.2)
[2022-03-08 13:56] LABS: Alanine Aminotransferase 21 units/L (7-56); Albumin 4.5 g/dL (3.9-5); Blood Urea Nitrogen 14 mg/dL (9-20); Calcium 9.7 mg/dL (8.4-10.2); Hemolysis Index 3
[2022-03-08 13:58] LABS: BUN/Creatinine Ratio 20
== END 2022-03-08 12:59 | disposition home or self-care (01) ==
LOC: LAB 12:58
PROVIDERS: ATTEND Internal Medicine Infectious Disease
DX: M86.8X7 Other osteomyelitis, ankle and foot (principal)
CPT/HCPCS: 36415; 80053; 85027; 86140

== ENCOUNTER 2022-03-11 15:01 | Outpatient (CLI) | payer BC | END 2022-03-11 15:02 | disposition home or self-care (01) | LOC: WOUND 15:01 | PROVIDERS: ATTEND Internal Medicine | DX: S91.301D Unspecified open wound, right foot, subsequent encounter (principal); E11.69 Type 2 diabetes mellitus with other specified complication; M86.071 Acute hematogenous osteomyelitis, right ankle and foot; M86.371 Chronic multifocal osteomyelitis, right ankle and foot; E11.42 Type 2 diabetes mellitus with diabetic polyneuropathy; L02.612 Cutaneous abscess of left foot; Z79.899 Other long term (current) drug therapy; X58.XXXD Exposure to other specified factors, subsequent encounter | CPT/HCPCS: 99183; G0277 ==

== ENCOUNTER 2022-03-12 08:40 | Outpatient (CLI) | payer BC | END 2022-03-12 08:41 | disposition home or self-care (01) | LOC: WOUND 08:40 | PROVIDERS: ATTEND Surgery | DX: S91.301D Unspecified open wound, right foot, subsequent encounter (principal); E11.69 Type 2 diabetes mellitus with other specified complication; M86.071 Acute hematogenous osteomyelitis, right ankle and foot; M86.371 Chronic multifocal osteomyelitis, right ankle and foot; E11.42 Type 2 diabetes mellitus with diabetic polyneuropathy; L02.612 Cutaneous abscess of left foot; Z79.899 Other long term (current) drug therapy; X58.XXXD Exposure to other specified factors, subsequent encounter | CPT/HCPCS: 99183; G0277 ==

== ENCOUNTER 2022-03-15 08:45 | Outpatient (CLI) | payer BC | END 2022-03-15 08:46 | disposition home or self-care (01) | LOC: WOUND 08:45 | PROVIDERS: ATTEND Surgery | DX: S91.301D Unspecified open wound, right foot, subsequent encounter (principal); E11.69 Type 2 diabetes mellitus with other specified complication; M86.071 Acute hematogenous osteomyelitis, right ankle and foot; M86.371 Chronic multifocal osteomyelitis, right ankle and foot; E11.42 Type 2 diabetes mellitus with diabetic polyneuropathy; L02.612 Cutaneous abscess of left foot; Z79.899 Other long term (current) drug therapy; X58.XXXD Exposure to other specified factors, subsequent encounter | CPT/HCPCS: 99183; G0277 ==

== ENCOUNTER 2022-03-19 10:21 | Outpatient (CLI) | payer BC | END 2022-03-19 10:22 | disposition home or self-care (01) | LOC: WOUND 10:21 | PROVIDERS: ATTEND Surgery | DX: S91.301D Unspecified open wound, right foot, subsequent encounter (principal); E11.42 Type 2 diabetes mellitus with diabetic polyneuropathy; E11.69 Type 2 diabetes mellitus with other specified complication; M86.371 Chronic multifocal osteomyelitis, right ankle and foot; Z79.899 Other long term (current) drug therapy; X58.XXXD Exposure to other specified factors, subsequent encounter | CPT/HCPCS: 99183; G0277 ==

== ENCOUNTER 2022-03-22 11:25 | Outpatient (CLI) | payer BC ==
[2022-03-22] MEDS ORDERED: LIDOCAINE (4%) 40 MG/ML TOPICAL SOLN 50 ML BOTTLE TP ONE (12:00)
== END 2022-03-22 11:26 | disposition home or self-care (01) ==
LOC: WOUND 11:25
PROVIDERS: ATTEND Surgery
DX: M86.371 Chronic multifocal osteomyelitis, right ankle and foot (principal); E11.69 Type 2 diabetes mellitus with other specified complication; L02.612 Cutaneous abscess of left foot; S91.301D Unspecified open wound, right foot, subsequent encounter; E11.42 Type 2 diabetes mellitus with diabetic polyneuropathy; Z79.899 Other long term (current) drug therapy
CPT/HCPCS: 17250; G0277; 99183

== ENCOUNTER 2022-03-26 06:40 | Day surgery (SDC) | payer BC ==
[2022-03-26] MEDS ORDERED: LIDOCAINE (1%) 10 MG/1 ML VIAL 20 ML MDV ONE (07:21)
[2022-03-26] MEDS ORDERED: BUPIVACAINE/PF (0.5%) 5 MG/1 ML 30 ML VIAL INFILTRATI ONE ×2 (07:21→07:55)
[2022-03-26] MEDS ORDERED: LIDOCAINE (1%) 10 MG/1 ML VIAL 20 ML MDV INFILTRATI ONE (07:56)
[2022-03-26] MEDS ORDERED: SODIUM CHLORIDE 0.9% IRR 1,500 ML BOTTLE IR ONE (07:56)
--- NOTE | 2022-03-26 08:34 | Procedure Note ---
Date of procedure: 03/26/22 Pre-op diagnosis: nonhealing left foot wounds with osteomyelitis Post-op diagnosis: same Procedure: debridement of left foot wounds Findings: Patient identified in preop and operative site marked. Consent obtained. Patient taken to OR and placed on the OR table in supine position. The left foot dressing was removed and the left foot was prepped and draped in the usual sterile fashion. A timeout was performed. There was a wound at the plantar aspect of the foot as well as the dorsal aspect near the base of the great toe. Local anesthetic was infiltrated into the periwound skin. I for started with the dorsal wound. Devascularized skin was excised using a 15 blade. The wound bed was mostly hypergranulation tissue. This was debrided using a combination of sharp debridement with forceps and scissors as well as a curette. Once all visible hypergranulation tissue was removed the wound bed was irrigated and hemostasis achieved with electrocautery. There was undermining of the wound for several centimeters going towards the medial aspect of the foot. I then turned my attention to the wound on the plantar aspect of the foot. This was the index wound which had previously healed but over the last few days the patient noted a pinpoint opening. Upon examination there was a circular area of devascularized skin. The skin was excised using electrocautery and the wound probed. The wound extended to the bone. There was also undermining towards the medial aspect of the foot. I extended the incision towards the medial aspect of the foot to get better visualization. The wound bed was made of mostly hypergr anulation tissue. Hypergranulation tissue was debrided using forceps, scissors, electrocautery and a curette. Once all visible hypergranulation tissue was excised the wound was checked for hemostasis. Both wounds were irrigated with saline. Hemostasis was very carefully achieved using electrocautery. Surgicel was also packed into both wounds in order to further ensure hemostasis. There was no active bleeding seen at the end of the case. Both wounds were packed with 1 piece of saline moistened gauze each. This was covered with a 4 x 4 fluff gauze, ABD pads, and wrapped with Kerlix. A stockinette was applied. The patient tolerated the procedure very well. The sharp, instrument, sponge counts were correct x2. The patient was discharged home in stable condition. Anesthesia: local Surgeon: TITA MCMULLEN Estimated blood loss: other (30cc) Pathology: none Condition: stable Disposition: other (home)
[2022-03-26 08:44] VITALS: BP 135/80
== END 2022-03-26 06:41 | disposition home or self-care (01) ==
LOC: OR 06:40
PROVIDERS: ATTEND Surgery
DX: S91.302A Unspecified open wound, left foot, initial encounter (principal); M86.8X7 Other osteomyelitis, ankle and foot; E78.00 Pure hypercholesterolemia, unspecified; I10 Essential (primary) hypertension; G47.30 Sleep apnea, unspecified; M19.90 Unspecified osteoarthritis, unspecified site; D64.9 Anemia, unspecified; Z80.0 Family history of malignant neoplasm of digestive organs; Z79.899 Other long term (current) drug therapy; Z88.8 Allergy status to other drugs, medicaments and biological substances; Z79.82 Long term (current) use of aspirin; Z87.01 Personal history of pneumonia (recurrent); Z90.49 Acquired absence of other specified parts of digestive tract; Z96.643 Presence of artificial hip joint, bilateral; Z98.890 Other specified postprocedural states
CPT/HCPCS: 11042; J3490

== ENCOUNTER 2022-03-29 13:19 | Outpatient (CLI) | payer BC ==
[2022-03-29] MEDS ORDERED: LIDOCAINE (4%) 40 MG/ML TOPICAL SOLN 50 ML BOTTLE TP ONE (13:38)
[2022-03-29] MEDS ORDERED: SODIUM CHLORIDE 0.9% 1000 ML 1,000 ML IV ONE (15:05)
[2022-03-29] MEDS ORDERED: SILVER NITRATE APPLICATOR 1 EA TP SCH (16:00)
[2022-03-30] MEDS ORDERED: SODIUM CHLORIDE 0.9% IRR 1,000 ML BOTTLE IR ONE (14:17)
== END 2022-03-29 13:20 | disposition home or self-care (01) ==
LOC: WOUND 13:19
PROVIDERS: ATTEND Surgery
DX: M86.371 Chronic multifocal osteomyelitis, right ankle and foot (principal); E11.69 Type 2 diabetes mellitus with other specified complication; L02.612 Cutaneous abscess of left foot; L89.894 Pressure ulcer of other site, stage 4; S91.301D Unspecified open wound, right foot, subsequent encounter; E11.42 Type 2 diabetes mellitus with diabetic polyneuropathy; Z79.899 Other long term (current) drug therapy; X58.XXXD Exposure to other specified factors, subsequent encounter
CPT/HCPCS: 11042; G0277; J7030; 99183

== ENCOUNTER 2022-03-30 15:39 | Outpatient (CLI) | payer BC | END 2022-03-30 15:40 | disposition home or self-care (01) | LOC: WOUND 15:39 | PROVIDERS: ATTEND Internal Medicine | DX: M86.371 Chronic multifocal osteomyelitis, right ankle and foot (principal); E11.69 Type 2 diabetes mellitus with other specified complication; S91.301D Unspecified open wound, right foot, subsequent encounter; E11.42 Type 2 diabetes mellitus with diabetic polyneuropathy; Z79.899 Other long term (current) drug therapy; X58.XXXD Exposure to other specified factors, subsequent encounter | CPT/HCPCS: 99183; G0277 ==

== ENCOUNTER 2022-03-31 11:19 | Outpatient (CLI) | payer BC | END 2022-03-31 11:20 | disposition home or self-care (01) | LOC: WOUND 11:19 | PROVIDERS: ATTEND Surgery | DX: M86.371 Chronic multifocal osteomyelitis, right ankle and foot (principal); E11.69 Type 2 diabetes mellitus with other specified complication; S91.301D Unspecified open wound, right foot, subsequent encounter; L02.612 Cutaneous abscess of left foot; L89.894 Pressure ulcer of other site, stage 4; E11.42 Type 2 diabetes mellitus with diabetic polyneuropathy; Z79.899 Other long term (current) drug therapy; X58.XXXD Exposure to other specified factors, subsequent encounter | CPT/HCPCS: G0277; G0463; 99183; 99214 ==

== ENCOUNTER 2022-04-07 09:00 | Outpatient (CLI) | payer BC | END 2022-04-07 16:30 | disposition home or self-care (01) | LOC: WOUND 09:00 | PROVIDERS: ATTEND Surgery | DX: M86.371 Chronic multifocal osteomyelitis, right ankle and foot (principal); E11.69 Type 2 diabetes mellitus with other specified complication; S91.301D Unspecified open wound, right foot, subsequent encounter; E11.42 Type 2 diabetes mellitus with diabetic polyneuropathy; Z79.899 Other long term (current) drug therapy; X58.XXXD Exposure to other specified factors, subsequent encounter | CPT/HCPCS: 99183; G0277 ==

== ENCOUNTER 2022-04-08 12:04 | Outpatient (CLI) | payer BC | END 2022-04-08 12:05 | disposition home or self-care (01) | LOC: WOUND 12:04 | PROVIDERS: ATTEND Internal Medicine | DX: M86.371 Chronic multifocal osteomyelitis, right ankle and foot (principal); E11.69 Type 2 diabetes mellitus with other specified complication; S91.301D Unspecified open wound, right foot, subsequent encounter; L02.612 Cutaneous abscess of left foot; L89.894 Pressure ulcer of other site, stage 4; E11.42 Type 2 diabetes mellitus with diabetic polyneuropathy; Z79.899 Other long term (current) drug therapy; X58.XXXD Exposure to other specified factors, subsequent encounter | CPT/HCPCS: G0277; G0463; 99183; 99214 ==

== ENCOUNTER 2022-04-12 11:28 | Outpatient (CLI) | payer BC ==
[2022-04-12] MEDS ORDERED: LIDOCAINE (4%) 40 MG/ML TOPICAL SOLN 50 ML BOTTLE TP ONE (11:36)
[2022-04-12] MEDS ORDERED: SODIUM CHLORIDE 0.9% IRR 1,000 ML BOTTLE IR ONE (11:44)
[2022-04-12] MEDS ORDERED: SODIUM CHLORIDE IRRIG SOLUTION 1,000 ML BAG IR ONE (16:51)
[2022-04-12] MEDS ORDERED: SILVER NITRATE APPLICATOR 1 EA TP ONE (16:51)
== END 2022-04-12 11:29 | disposition home or self-care (01) ==
LOC: WOUND 11:28
PROVIDERS: ATTEND Surgery
DX: M86.371 Chronic multifocal osteomyelitis, right ankle and foot (principal); E11.69 Type 2 diabetes mellitus with other specified complication; S91.301D Unspecified open wound, right foot, subsequent encounter; L02.612 Cutaneous abscess of left foot; L89.894 Pressure ulcer of other site, stage 4; E11.42 Type 2 diabetes mellitus with diabetic polyneuropathy; Z79.899 Other long term (current) drug therapy; X58.XXXD Exposure to other specified factors, subsequent encounter
CPT/HCPCS: 11042; 97605; G0277; 99183

== ENCOUNTER 2022-04-14 09:00 | Outpatient (CLI) | payer BC | END 2022-04-14 16:30 | disposition home or self-care (01) | LOC: WOUND 09:00 | PROVIDERS: ATTEND Surgery | DX: M86.371 Chronic multifocal osteomyelitis, right ankle and foot (principal); E11.69 Type 2 diabetes mellitus with other specified complication; S91.301D Unspecified open wound, right foot, subsequent encounter; E11.42 Type 2 diabetes mellitus with diabetic polyneuropathy; Z79.899 Other long term (current) drug therapy; X58.XXXD Exposure to other specified factors, subsequent encounter | CPT/HCPCS: 99183; G0277 ==

== ENCOUNTER 2022-04-15 11:25 | Outpatient (CLI) | payer BC | END 2022-04-15 11:26 | disposition home or self-care (01) | LOC: WOUND 11:25 | PROVIDERS: ATTEND Internal Medicine | DX: M86.371 Chronic multifocal osteomyelitis, right ankle and foot (principal); E11.69 Type 2 diabetes mellitus with other specified complication; S91.301D Unspecified open wound, right foot, subsequent encounter; L02.612 Cutaneous abscess of left foot; L89.894 Pressure ulcer of other site, stage 4; E11.42 Type 2 diabetes mellitus with diabetic polyneuropathy; Z79.899 Other long term (current) drug therapy; X58.XXXD Exposure to other specified factors, subsequent encounter | CPT/HCPCS: 97605; G0277; 99183 ==

== ENCOUNTER 2022-04-16 09:00 | Outpatient (CLI) | payer BC | END 2022-04-16 16:30 | disposition home or self-care (01) | LOC: WOUND 09:00 | PROVIDERS: ATTEND Surgery | DX: M86.371 Chronic multifocal osteomyelitis, right ankle and foot (principal); E11.69 Type 2 diabetes mellitus with other specified complication; S91.301D Unspecified open wound, right foot, subsequent encounter; E11.42 Type 2 diabetes mellitus with diabetic polyneuropathy; Z79.899 Other long term (current) drug therapy; X58.XXXD Exposure to other specified factors, subsequent encounter | CPT/HCPCS: 99183; G0277 ==

== ENCOUNTER 2022-04-19 12:16 | Outpatient (CLI) | payer BC | END 2022-04-19 12:17 | disposition home or self-care (01) | LOC: WOUND 12:16 | PROVIDERS: ATTEND Surgery | DX: M86.371 Chronic multifocal osteomyelitis, right ankle and foot (principal); E11.69 Type 2 diabetes mellitus with other specified complication; L02.612 Cutaneous abscess of left foot; L89.894 Pressure ulcer of other site, stage 4; S91.301D Unspecified open wound, right foot, subsequent encounter; E11.42 Type 2 diabetes mellitus with diabetic polyneuropathy; Z79.899 Other long term (current) drug therapy; X58.XXXD Exposure to other specified factors, subsequent encounter | CPT/HCPCS: 11042; 11044; 97605; G0277; 99183 ==

== ENCOUNTER 2022-04-20 15:32 | Outpatient (CLI) | payer BC | END 2022-04-20 15:33 | disposition home or self-care (01) | LOC: WOUND 15:32 | PROVIDERS: ATTEND Internal Medicine | DX: M86.371 Chronic multifocal osteomyelitis, right ankle and foot (principal); E11.69 Type 2 diabetes mellitus with other specified complication; S91.301D Unspecified open wound, right foot, subsequent encounter; E11.42 Type 2 diabetes mellitus with diabetic polyneuropathy; Z79.899 Other long term (current) drug therapy; X58.XXXD Exposure to other specified factors, subsequent encounter | CPT/HCPCS: 99183; G0277 ==

== ENCOUNTER 2022-04-28 09:00 | Outpatient (CLI) | payer BC | END 2022-04-28 16:30 | disposition home or self-care (01) | LOC: WOUND 09:00 | PROVIDERS: ATTEND Surgery | DX: M86.371 Chronic multifocal osteomyelitis, right ankle and foot (principal); E11.69 Type 2 diabetes mellitus with other specified complication; S91.301D Unspecified open wound, right foot, subsequent encounter; E11.42 Type 2 diabetes mellitus with diabetic polyneuropathy; Z79.899 Other long term (current) drug therapy; X58.XXXD Exposure to other specified factors, subsequent encounter | CPT/HCPCS: 99183; G0277 ==

== ENCOUNTER 2022-05-03 12:01 | Outpatient (CLI) | payer BC ==
[2022-05-03] MEDS ORDERED: LIDOCAINE (4%) 40 MG/ML TOPICAL SOLN 50 ML BOTTLE TP SCH (12:10)
[2022-05-03] MEDS ORDERED: SILVER NITRATE APPLICATOR 1 EA TP SCH (12:11)
[2022-05-03] MEDS ORDERED: SODIUM CHLORIDE IRRIG SOLUTION 1,000 ML BAG IR NR (12:26)
== END 2022-05-03 12:02 | disposition home or self-care (01) ==
LOC: WOUND 12:01
PROVIDERS: ATTEND Surgery
DX: M86.371 Chronic multifocal osteomyelitis, right ankle and foot (principal); E11.69 Type 2 diabetes mellitus with other specified complication; M86.071 Acute hematogenous osteomyelitis, right ankle and foot; S91.301D Unspecified open wound, right foot, subsequent encounter; L02.612 Cutaneous abscess of left foot; L89.894 Pressure ulcer of other site, stage 4; E11.42 Type 2 diabetes mellitus with diabetic polyneuropathy; Z79.899 Other long term (current) drug therapy; X58.XXXD Exposure to other specified factors, subsequent encounter
CPT/HCPCS: 11042; 97605; G0277; 99183

== ENCOUNTER 2022-05-06 16:08 | Outpatient (CLI) | payer BC | END 2022-05-06 16:09 | disposition home or self-care (01) | LOC: WOUND 16:08 | PROVIDERS: ATTEND Internal Medicine | DX: M86.371 Chronic multifocal osteomyelitis, right ankle and foot (principal); E11.69 Type 2 diabetes mellitus with other specified complication; S91.301D Unspecified open wound, right foot, subsequent encounter; E11.42 Type 2 diabetes mellitus with diabetic polyneuropathy; Z79.899 Other long term (current) drug therapy; X58.XXXD Exposure to other specified factors, subsequent encounter | CPT/HCPCS: 99183; G0277 ==

== ENCOUNTER 2022-05-12 16:42 | Outpatient (CLI) | payer BC | END 2022-05-12 16:43 | disposition home or self-care (01) | LOC: WOUND 16:42 | PROVIDERS: ATTEND Surgery | DX: M86.371 Chronic multifocal osteomyelitis, right ankle and foot (principal); E11.69 Type 2 diabetes mellitus with other specified complication; S91.301D Unspecified open wound, right foot, subsequent encounter; E11.42 Type 2 diabetes mellitus with diabetic polyneuropathy; Z79.899 Other long term (current) drug therapy; X58.XXXD Exposure to other specified factors, subsequent encounter | CPT/HCPCS: 99183; G0277 ==

== ENCOUNTER 2022-05-13 08:35 | Outpatient (CLI) | payer BC | END 2022-05-13 08:36 | disposition home or self-care (01) | LOC: WOUND 08:35 | PROVIDERS: ATTEND Internal Medicine | DX: M86.371 Chronic multifocal osteomyelitis, right ankle and foot (principal); E11.69 Type 2 diabetes mellitus with other specified complication; S91.301D Unspecified open wound, right foot, subsequent encounter; E11.42 Type 2 diabetes mellitus with diabetic polyneuropathy; Z79.899 Other long term (current) drug therapy; X58.XXXD Exposure to other specified factors, subsequent encounter | CPT/HCPCS: 99183; G0277 ==

== ENCOUNTER 2022-05-14 08:32 | Outpatient (CLI) | payer BC | END 2022-05-14 08:33 | disposition home or self-care (01) | LOC: WOUND 08:32 | PROVIDERS: ATTEND Surgery | DX: M86.371 Chronic multifocal osteomyelitis, right ankle and foot (principal); E11.69 Type 2 diabetes mellitus with other specified complication; S91.301D Unspecified open wound, right foot, subsequent encounter; E11.42 Type 2 diabetes mellitus with diabetic polyneuropathy; Z79.899 Other long term (current) drug therapy; X58.XXXD Exposure to other specified factors, subsequent encounter | CPT/HCPCS: 99183; G0277 ==

== ENCOUNTER 2022-05-17 11:30 | Outpatient (CLI) | payer BC | END 2022-05-17 11:31 | disposition home or self-care (01) | LOC: WOUND 11:30 | PROVIDERS: ATTEND Surgery | DX: L89.894 Pressure ulcer of other site, stage 4 (principal); S91.301D Unspecified open wound, right foot, subsequent encounter; E11.69 Type 2 diabetes mellitus with other specified complication; M86.371 Chronic multifocal osteomyelitis, right ankle and foot; E11.42 Type 2 diabetes mellitus with diabetic polyneuropathy; Z79.899 Other long term (current) drug therapy; X58.XXXD Exposure to other specified factors, subsequent encounter ==

== ENCOUNTER 2022-05-20 08:35 | Outpatient (CLI) | payer BC | END 2022-05-20 08:36 | disposition home or self-care (01) | LOC: WOUND 08:35 | PROVIDERS: ATTEND Surgery | DX: L89.894 Pressure ulcer of other site, stage 4 (principal); S91.301D Unspecified open wound, right foot, subsequent encounter; E11.69 Type 2 diabetes mellitus with other specified complication; M86.371 Chronic multifocal osteomyelitis, right ankle and foot; E11.42 Type 2 diabetes mellitus with diabetic polyneuropathy; Z79.899 Other long term (current) drug therapy; X58.XXXD Exposure to other specified factors, subsequent encounter | CPT/HCPCS: 99211; 99213; G0463 ==

== ENCOUNTER 2022-06-01 08:42 | Outpatient (CLI) | payer BC ==
[2022-06-01 12:34] LABS: Basophils % (Auto) 0.5 % (0.0-1.8); Eosinophils # (Auto) 0.2 K/mm3 (0.0-0.4); Eosinophils % (Auto) 3.5 % (0.0-4.3); Hematocrit 44.3 % (35.5-45.6); Hemoglobin 15.2 gm/dl (11.8-15.2); Lymphocytes % (Auto) 37.6 % (13.4-35.0); Mean Corpuscular HGB Conc 34 % (32-34); Mean Corpuscular Volume 81 fl (84-94); Monocytes # (Auto) 0.6 K/mm3 (0.0-0.8); Monocytes % (Auto) 10.9 % (0.0-7.3); Platelet Count 209 K/mm3 (140-440); Red Blood Count 5.48 M/mm3 (3.65-5.03); Red Cell Distribution Width 16.6 % (13.2-15.2)
[2022-06-01 12:58] LABS: Alanine Aminotransferase 22 units/L (7-56); Albumin 4.6 g/dL (3.9-5); BUN/Creatinine Ratio 15; Blood Urea Nitrogen 16 mg/dL (9-20); Calcium 9.2 mg/dL (8.4-10.2); Chol/HDL Ratio 4.11 %; HDL Cholesterol 34 mg/dL (40-59); Hemolysis Index 5; LDL Cholesterol,Direct 73 mg/dL (50-130)
== END 2022-06-01 08:43 | disposition home or self-care (01) ==
LOC: LABHHL 08:42
PROVIDERS: ATTEND Internal Medicine
DX: Z00.00 Encounter for general adult medical examination without abnormal findings (principal); E78.5 Hyperlipidemia, unspecified; R73.03 Prediabetes; E55.9 Vitamin D deficiency, unspecified; I10 Essential (primary) hypertension; R53.83 Other fatigue; R39.11 Hesitancy of micturition
CPT/HCPCS: 36415; 80053; 80061; 82306; 83036; 84153; 84443; 85025

== ENCOUNTER 2022-06-03 09:09 | Outpatient (CLI) | payer BC ==
[2022-06-03] MEDS ORDERED: LIDOCAINE (4%) 40 MG/ML TOPICAL SOLN 50 ML BOTTLE TP ONE (11:00)
== END 2022-06-03 09:10 | disposition home or self-care (01) ==
LOC: WOUND 09:09
PROVIDERS: ATTEND Surgery
DX: L89.894 Pressure ulcer of other site, stage 4 (principal); S91.302D Unspecified open wound, left foot, subsequent encounter; E11.69 Type 2 diabetes mellitus with other specified complication; M86.072 Acute hematogenous osteomyelitis, left ankle and foot; E11.42 Type 2 diabetes mellitus with diabetic polyneuropathy; Z79.899 Other long term (current) drug therapy; X58.XXXD Exposure to other specified factors, subsequent encounter
CPT/HCPCS: 97605

== ENCOUNTER 2022-06-07 14:10 | Outpatient (CLI) | payer BC | END 2022-06-07 14:11 | disposition home or self-care (01) | LOC: WOUND 14:10 | PROVIDERS: ATTEND Surgery | DX: L89.894 Pressure ulcer of other site, stage 4 (principal); S91.302D Unspecified open wound, left foot, subsequent encounter; E11.69 Type 2 diabetes mellitus with other specified complication; M86.072 Acute hematogenous osteomyelitis, left ankle and foot; E11.42 Type 2 diabetes mellitus with diabetic polyneuropathy; Z79.899 Other long term (current) drug therapy; X58.XXXD Exposure to other specified factors, subsequent encounter | CPT/HCPCS: 97605 ==

== ENCOUNTER 2022-06-14 10:21 | Outpatient (CLI) | payer BC ==
[2022-06-14] MEDS ORDERED: SILVER NITRATE APPLICATOR 1 EA TP ONE (12:00)
== END 2022-06-14 10:22 | disposition home or self-care (01) ==
LOC: WOUND 10:21
PROVIDERS: ATTEND Surgery
DX: L89.894 Pressure ulcer of other site, stage 4 (principal); S91.302D Unspecified open wound, left foot, subsequent encounter; E11.69 Type 2 diabetes mellitus with other specified complication; M86.072 Acute hematogenous osteomyelitis, left ankle and foot; E11.42 Type 2 diabetes mellitus with diabetic polyneuropathy; Z79.899 Other long term (current) drug therapy; X58.XXXD Exposure to other specified factors, subsequent encounter

== ENCOUNTER 2022-06-28 11:02 | Outpatient (CLI) | payer BC ==
[2022-06-28] MEDS ORDERED: SILVER NITRATE APPLICATOR 1 EA TP ONE (11:41)
[2022-06-28] MEDS ORDERED: LIDOCAINE (4%) 40 MG/ML TOPICAL SOLN 50 ML BOTTLE TP ONE (11:41)
== END 2022-06-28 11:03 | disposition home or self-care (01) ==
LOC: WOUND 11:02
PROVIDERS: ATTEND Surgery
DX: L89.894 Pressure ulcer of other site, stage 4 (principal); S91.302D Unspecified open wound, left foot, subsequent encounter; E11.42 Type 2 diabetes mellitus with diabetic polyneuropathy; E11.69 Type 2 diabetes mellitus with other specified complication; M86.072 Acute hematogenous osteomyelitis, left ankle and foot; Z79.899 Other long term (current) drug therapy; X58.XXXD Exposure to other specified factors, subsequent encounter
CPT/HCPCS: 99214; G0463

== ENCOUNTER 2022-07-19 09:27 | Outpatient (CLI) | payer BC ==
[2022-07-19] MEDS ORDERED: LIDOCAINE (4%) 40 MG/ML TOPICAL SOLN 50 ML BOTTLE TP ONE (10:15)
== END 2022-07-19 09:28 | disposition home or self-care (01) ==
LOC: WOUND 09:27
PROVIDERS: ATTEND Surgery
DX: L89.893 Pressure ulcer of other site, stage 3 (principal); S91.302D Unspecified open wound, left foot, subsequent encounter; E11.42 Type 2 diabetes mellitus with diabetic polyneuropathy; E11.69 Type 2 diabetes mellitus with other specified complication; M86.072 Acute hematogenous osteomyelitis, left ankle and foot; Z79.899 Other long term (current) drug therapy; X58.XXXD Exposure to other specified factors, subsequent encounter
CPT/HCPCS: 99214; G0463